=== PATIENT | male | born 1960 | race African-American/Black ===

== ENCOUNTER 2017-05-26 08:48 | Inpatient (IN) ==
[2017-05-26] MEDS ORDERED: ALBUTEROL/IPRATROPIUM 3 ML NEB RESP TX STA (09:15)
[2017-05-26] MEDS ORDERED: FUROSEMIDE 100 MG/10 ML VIAL IV STA (09:15)
[2017-05-26] MEDS ORDERED: FUROSEMIDE 100 MG/10 ML VIAL ONE (09:30)
[2017-05-26] MEDS ORDERED: niCARdipine 25 MG/10 ML VIAL IV ONE ×2 (09:30→12:48)
[2017-05-26] MEDS ORDERED: niCARdipine INJ 25 MG in SODIUM CHLORIDE 0.9% 240 ML IV SCH ×2 (09:30→13:00)
[2017-05-26 09:33] LABS: Basophils % 0.5 % (0.0-0.8); Eosinophils # 0.4 10*3/uL (0.0-0.87); Eosinophils % 6.3 % (0.00-10.9); Hematocrit 49.6 VOL% (42.0-52.0); Hemoglobin 15.4 GM/DL (14.0-18.0); Immature Granulocytes % 0.2 %; Immature Granulocytes Absolute 0.01 #; Lymphocytes # 1.8 10*3/uL (1.4-4.0); Mean Corpuscular Hemoglobin 27 PG (27-34); Mean Corpuscular Volume 85.2 FL (87-102); Mean Platelet Volume 11.5 FL (9.6-12.0); Monocytes # 0.7 10*3/uL (0.11-0.8); Monocytes % 9.8 % (1.7-12.7); Neutrophils # 3.7 10*3/uL (1.4-7.4); Neutrophils % 56.2 % (38.7-73.9); Platelet Count 204 T/CUMM (130-400); Red Blood Count 5.82 MC/CUMM (3.8-5.5); Red Cell Distribution Width 17.8 % (9.3-17.3); White Blood Count 6.6 T/CUMM (4-12)
[2017-05-26 10:04] LABS: Albumin 3.6 G/DL (3.4-5.0); Bilirubin,Total 0.4 MG/DL (0.2-1.0); Calcium 8.5 MG/DL (8.5-10.1); Magnesium 1.9 MG/DL (1.8-2.4); Osmolality,Calculated 281.4 MOS/KG (273-304); Potassium 4.1 MMOL/L (3.5-5.1); Total Protein 8.1 G/DL (6.4-8.3)
[2017-05-26 10:05] LABS: Troponin I Only 0.157 NG/ML (0.00-0.045)
[2017-05-26] MEDS ORDERED: NICOTINE 21 MG/24 HR PATCH TRANSDERM PRN (10:52)
[2017-05-26] MEDS ORDERED: diphenhydrAMINE CAP 25 MG CAPSULE PO PRN (10:52)
[2017-05-26] MEDS ORDERED: DOCUSATE SODIUM 100 MG CAPSULE PO PRN (10:52)
[2017-05-26] MEDS ORDERED: MORPHINE 2 MG/1 ML SYRINGE IV PRN (10:52)
[2017-05-26] MEDS ORDERED: ONDANSETRON 4 MG/2 ML VIAL IV PRN (10:52)
[2017-05-26] MEDS ORDERED: ACETAMINOPHEN 325 MG TABLET PO PRN (10:52)
[2017-05-26] MEDS ORDERED: ENALAPRIL 2.5 MG/2 ML VIAL IV ONE (10:59)
[2017-05-26 12:13] LABS: Risk Ratio 5.38; Thyroid Stimulating Hormone 2.49 uIU/ml (0.358-3.74); VLDL CHOLESTEROL 31.8 MG/DL
[2017-05-26] MEDS ORDERED: SODIUM CHLORIDE 0.9% 250 ML IV ONE (12:44)
[2017-05-26] MEDS ORDERED: DILTIAZEM 100 MG VIAL.ADD IV ONE (12:44)
[2017-05-26] MEDS ORDERED: INFLUENZA VIRUS VACCINE 0.5 ML SYRINGE IM ONE (14:30)
[2017-05-26] MEDS: FUROSEMIDE 40 MG/4 ML VIAL IV SCH ×2 (14:35→22:07)
[2017-05-26] MEDS: PANTOPRAZOLE 40 MG TABLET PO SCH (14:36)
[2017-05-26] MEDS: LISINOPRIL/HCTZ 20-25 MG TABLET PO SCH (14:36)
[2017-05-26] MEDS: ENOXAPARIN 40 MG/0.4 ML SYRINGE SUBCUT SCH ×2 (14:36→15:47)
[2017-05-26] MEDS: guaiFENesin/DM ER 600-30 MG TABLET PO PRN (14:36)
[2017-05-26] MEDS: ALBUTEROL/IPRATROPIUM 3 ML NEB RESP TX SCH ×2 (14:44→20:12)
[2017-05-26] MEDS: ENALAPRIL 2.5 MG/2 ML VIAL IV PRN (22:09)
[2017-05-27] MEDS: ALBUTEROL/IPRATROPIUM 3 ML NEB RESP TX SCH ×4 (01:29→20:17)
[2017-05-27 02:43] LABS: Apearance,Urine CLEAR (Clear); Bilirubin,Urine Negative (Negative); Blood, Urine Moderate mg/dL (Negative); Glucose,Urine (UA) Negative (Negative); Hyaline Casts,Urine 2 /LPF (0-3); Ketones,Urine Negative (Negative); Nitrite,Urine Negative (Negative); Protein,Urine Negative; RBC,Urine 1 /HPF (0-4); Urine Color Straw (Yellow); Urine Specific Gravity 1.006 (1.001-1.035); Urine Urobilinogen < 2.0 EU/DL (0.2-1.0); WBC,Urine <1 /HPF (0-6)
[2017-05-27] MEDS: FUROSEMIDE 40 MG/4 ML VIAL IV SCH ×3 (03:17→17:00)
[2017-05-27] MEDS: NITROGLYCERIN 2% OINT 1 INCH/GM PACK TOP SCH ×3 (03:55→21:12)
[2017-05-27 05:37] LABS: Basophils % 0.4 % (0.0-0.8); Eosinophils % 0.4 % (0.00-10.9); Hematocrit 44.7 VOL% (42.0-52.0); Hemoglobin 14.5 GM/DL (14.0-18.0); Immature Granulocytes % 0.4 %; Immature Granulocytes Absolute 0.02 #; Lymphocytes # 1.5 10*3/uL (1.4-4.0); Lymphocytes % 26.7 % (21.2-54.2); Mean Corpuscular HGB Conc 32.4 GM/DL (32-36); Mean Corpuscular Hemoglobin 27 PG (27-34); Mean Corpuscular Volume 81.9 FL (87-102); Mean Platelet Volume 11.8 FL (9.6-12.0); Monocytes # 0.8 10*3/uL (0.11-0.8); Monocytes % 14.8 % (1.7-12.7); Neutrophils # 3.2 10*3/uL (1.4-7.4); Neutrophils % 57.3 % (38.7-73.9); Platelet Count 188 T/CUMM (130-400); Red Blood Count 5.46 MC/CUMM (3.8-5.5); Red Cell Distribution Width 16.8 % (9.3-17.3); White Blood Count 5.5 T/CUMM (4-12)
[2017-05-27 06:02] LABS: Calcium 8.4 MG/DL (8.5-10.1); Magnesium 1.6 MG/DL (1.8-2.4); Osmolality,Calculated 277.8 MOS/KG (273-304)
[2017-05-27] MEDS ORDERED: hydrALAZINE 20 MG/1 ML VIAL IV PRN (06:22)
[2017-05-27] MEDS: ENALAPRIL 2.5 MG/2 ML VIAL IV PRN (06:34)
[2017-05-27] MEDS ORDERED: POTASSIUM CHLORIDE 20 MEQ TABLET PO ONE (08:14)
[2017-05-27] MEDS: LISINOPRIL/HCTZ 20-25 MG TABLET PO SCH (08:14)
[2017-05-27] MEDS: METOPROLOL SUCCINATE XL 100 MG TABLET PO SCH (08:14)
[2017-05-27] MEDS: guaiFENesin/DM ER 600-30 MG TABLET PO PRN (08:15)
[2017-05-27] MEDS: PANTOPRAZOLE 40 MG TABLET PO SCH (08:15)
[2017-05-27] MEDS ORDERED: MAGNESIUM SULF RIDER 2 GM in PREMIX 1 EACH IV ONE (08:18)
[2017-05-27] MEDS: ENOXAPARIN 40 MG/0.4 ML SYRINGE SUBCUT SCH (11:06)
[2017-05-27] MEDS: ASPIRIN EC 81 MG TABLET PO SCH (11:50)
[2017-05-27] MEDS: amLODIPine 5 MG TABLET PO SCH (11:50)
[2017-05-28] MEDS: ALBUTEROL/IPRATROPIUM 3 ML NEB RESP TX SCH (00:50)
[2017-05-28 02:44] LABS: Calcium 8.8 MG/DL (8.5-10.1); Osmolality,Calculated 280.1 MOS/KG (273-304); Potassium 3.5 MMOL/L (3.5-5.1)
[2017-05-28 07:15] VITALS: BP 143/99
[2017-05-28] MEDS: LISINOPRIL/HCTZ 20-25 MG TABLET PO SCH ×2 (07:53→08:24)
[2017-05-28] MEDS: PANTOPRAZOLE 40 MG TABLET PO SCH ×2 (07:54→08:24)
[2017-05-28] MEDS: ASPIRIN EC 81 MG TABLET PO SCH ×2 (07:54→08:15)
[2017-05-28] MEDS: FUROSEMIDE 40 MG/4 ML VIAL IV SCH (07:54)
[2017-05-28] MEDS: METOPROLOL SUCCINATE XL 100 MG TABLET PO SCH ×2 (07:54→08:25)
[2017-05-28] MEDS: amLODIPine 5 MG TABLET PO SCH ×2 (07:54→08:24)
[2017-05-28] MEDS: NITROGLYCERIN 2% OINT 1 INCH/GM PACK TOP SCH ×2 (07:55→08:15)
== END 2017-05-28 11:16 | disposition home or self-care (01) | DRG 291 ==
LOC: N.ED 08:48 → N.EDINP 11:03 → N.ICU 13:59 → N.TELEN 05-28 08:13
PROVIDERS: ADMIT Internal Medicine Geriatric Medicine; ATTEND Internal Medicine Geriatric Medicine

== ENCOUNTER 2018-03-26 06:13 | Inpatient (IN) ==
[2018-03-26] MEDS ORDERED: ASPIRIN 325 MG TABLET PO STA (06:32)
[2018-03-26] MEDS ORDERED: NITROGLYCERIN 2% OINT 1 INCH/GM PACK TOP STA (06:32)
[2018-03-26] MEDS ORDERED: MORPHINE 4 MG/1 ML VIAL IV STA (06:32)
[2018-03-26] MEDS ORDERED: NITROGLYCERIN SL 0.4 MG TABLET SL PRN (06:32)
[2018-03-26] MEDS ORDERED: METOPROLOL TARTRATE 5 MG/5 ML VIAL IV STA (06:45)
[2018-03-26] MEDS ORDERED: METOPROLOL TARTRATE 5 MG/5 ML VIAL IV ONE (06:45)
[2018-03-26] MEDS ORDERED: ONDANSETRON 4 MG/2 ML VIAL ONE (06:45)
[2018-03-26] MEDS ORDERED: ONDANSETRON 4 MG/2 ML VIAL IV STA (06:45)
[2018-03-26 06:53] LABS: Basophils % 0.1 % (0.0-0.8); Eosinophils # 0.2 10*3/uL (0.0-0.87); Eosinophils % 1.2 % (0.00-10.9); Hematocrit 39.1 VOL% (42.0-52.0); Hemoglobin 12.4 GM/DL (14.0-18.0); Immature Granulocytes % 0.7 %; Immature Granulocytes Absolute 0.09 #; Lymphocytes # 1.5 10*3/uL (1.4-4.0); Mean Corpuscular HGB Conc 31.7 GM/DL (32-36); Mean Corpuscular Hemoglobin 27 PG (27-34); Mean Corpuscular Volume 85.6 FL (87-102); Mean Platelet Volume 10.4 FL (9.6-12.0); Monocytes # 1.8 10*3/uL (0.11-0.8); Neutrophils # 10.1 10*3/uL (1.4-7.4); Platelet Count 213 T/CUMM (130-400); Red Blood Count 4.57 MC/CUMM (3.8-5.5); Red Cell Distribution Width 16.5 % (9.3-17.3); White Blood Count 13.7 T/CUMM (4-12)
[2018-03-26 07:02] LABS: INR 1.1; Partial Thromboplastin Time 31.5 SECS (0-40)
[2018-03-26 07:08] LABS: Albumin 3.2 G/DL (3.4-5.0); Bilirubin,Total 0.7 MG/DL (0.2-1.0); Calcium 8.3 MG/DL (8.5-10.1); Osmolality,Calculated 274.8 MOS/KG (273-304); Potassium 3.7 MMOL/L (3.5-5.1); Total Protein 7.5 G/DL (6.4-8.3)
[2018-03-26] MEDS ORDERED: ENOXAPARIN 120 MG/0.8 ML SYRINGE SUBCUT STA (07:19)
[2018-03-26] MEDS ORDERED: MAGNESIUM SULF RIDER 2 GM in PREMIX 1 EACH IV STA (08:35)
[2018-03-26] MEDS ORDERED: PROMETHAZINE 25 MG/1 ML VIAL IM PRN (09:05)
[2018-03-26] MEDS ORDERED: ENOXAPARIN 40 MG/0.4 ML SYRINGE SUBCUT SCH (09:30)
[2018-03-26] MEDS ORDERED: ASPIRIN EC 81 MG TABLET PO SCH (09:30)
[2018-03-26] MEDS ORDERED: INFLUENZA VIRUS VACCINE 0.5 ML SYRINGE IM ONE (10:36)
[2018-03-26] MEDS: PANTOPRAZOLE 40 MG TABLET PO SCH (10:58)
[2018-03-26] MEDS: LISINOPRIL 20 MG TABLET PO SCH (10:58)
[2018-03-26] MEDS: CHLORTHALIDONE 25 MG TABLET PO SCH (10:58)
[2018-03-26] MEDS: APIXABAN 5 MG TABLET PO SCH ×2 (10:58→21:20)
[2018-03-26] MEDS: LEVOFLOXACIN INJ 500 MG in PREMIX 1 EACH IV SCH (10:59)
[2018-03-26] MEDS: NICOTINE 21 MG/24 HR PATCH TRANSDERM SCH ×2 (10:59→11:05)
[2018-03-26] MEDS: METOPROLOL SUCCINATE XL 100 MG TABLET PO SCH (10:59)
[2018-03-26] MEDS: hydrALAZINE 25 MG TABLET PO SCH (21:20)
[2018-03-26] MEDS: ATORVASTATIN 40 MG TABLET PO SCH (21:20)
[2018-03-27 06:32] LABS: Basophils % 0.2 % (0.0-0.8); Eosinophils # 0.1 10*3/uL (0.0-0.87); Eosinophils % 0.5 % (0.00-10.9); Hematocrit 35.9 VOL% (42.0-52.0); Hemoglobin 11.4 GM/DL (14.0-18.0); Immature Granulocytes % 0.9 %; Immature Granulocytes Absolute 0.13 #; Lymphocytes # 1.5 10*3/uL (1.4-4.0); Lymphocytes % 10.1 % (21.2-54.2); Mean Corpuscular HGB Conc 31.8 GM/DL (32-36); Mean Corpuscular Hemoglobin 27 PG (27-34); Mean Corpuscular Volume 85.3 FL (87-102); Mean Platelet Volume 11.3 FL (9.6-12.0); Monocytes # 2.2 10*3/uL (0.11-0.8); Monocytes % 15.1 % (1.7-12.7); Neutrophils # 10.8 10*3/uL (1.4-7.4); Neutrophils % 73.2 % (38.7-73.9); Platelet Count 212 T/CUMM (130-400); Red Blood Count 4.21 MC/CUMM (3.8-5.5); Red Cell Distribution Width 16.6 % (9.3-17.3); White Blood Count 14.7 T/CUMM (4-12)
[2018-03-27 07:06] LABS: Albumin 2.6 G/DL (3.4-5.0); Bilirubin,Total 0.8 MG/DL (0.2-1.0); Calcium 7.8 MG/DL (8.5-10.1); Potassium 3.6 MMOL/L (3.5-5.1); Risk Ratio 5.36; VLDL CHOLESTEROL 24.4 MG/DL
[2018-03-27] MEDS: PANTOPRAZOLE 40 MG TABLET PO SCH (08:04)
[2018-03-27] MEDS: LISINOPRIL 20 MG TABLET PO SCH (08:04)
[2018-03-27] MEDS: hydrALAZINE 25 MG TABLET PO SCH ×3 (08:04→21:25)
[2018-03-27] MEDS: METOPROLOL SUCCINATE XL 100 MG TABLET PO SCH (08:05)
[2018-03-27] MEDS: APIXABAN 5 MG TABLET PO SCH ×2 (08:05→21:24)
[2018-03-27] MEDS: CHLORTHALIDONE 25 MG TABLET PO SCH (08:05)
[2018-03-27] MEDS: amLODIPine 10 MG TABLET PO SCH (08:05)
[2018-03-27] MEDS: NICOTINE 21 MG/24 HR PATCH TRANSDERM SCH (08:12)
[2018-03-27] MEDS: LEVOFLOXACIN INJ 500 MG in PREMIX 1 EACH IV SCH (08:46)
[2018-03-27] MEDS ORDERED: ACETAMINOPHEN 325 MG TABLET PO PRN (12:02)
[2018-03-27] MEDS ORDERED: ACETAMINOPHEN 500 MG TABLET PO ONE (12:02)
[2018-03-27] MEDS ORDERED: IBUPROFEN 600 MG TABLET PO PRN (13:51)
[2018-03-27] MEDS: ALBUTEROL/IPRATROPIUM 3 ML NEB RESP TX SCH (20:00)
[2018-03-27] MEDS: ATORVASTATIN 40 MG TABLET PO SCH (21:25)
[2018-03-28] MEDS: ALBUTEROL/IPRATROPIUM 3 ML NEB RESP TX SCH ×4 (00:30→19:54)
[2018-03-28 05:22] LABS: Basophils % 0.2 % (0.0-0.8); Eosinophils # 0.2 10*3/uL (0.0-0.87); Eosinophils % 1.9 % (0.00-10.9); Hematocrit 35.8 VOL% (42.0-52.0); Hemoglobin 11.3 GM/DL (14.0-18.0); Immature Granulocytes % 0.7 %; Immature Granulocytes Absolute 0.09 #; Lymphocytes # 1.1 10*3/uL (1.4-4.0); Lymphocytes % 9.3 % (21.2-54.2); Mean Corpuscular HGB Conc 31.6 GM/DL (32-36); Mean Corpuscular Hemoglobin 27 PG (27-34); Mean Corpuscular Volume 85.2 FL (87-102); Mean Platelet Volume 11.2 FL (9.6-12.0); Monocytes % 16.5 % (1.7-12.7); Neutrophils # 8.7 10*3/uL (1.4-7.4); Neutrophils % 71.4 % (38.7-73.9); Platelet Count 213 T/CUMM (130-400); Red Cell Distribution Width 16.7 % (9.3-17.3); White Blood Count 12.2 T/CUMM (4-12)
[2018-03-28 05:35] LABS: Calcium 7.4 MG/DL (8.5-10.1); Potassium 3.6 MMOL/L (3.5-5.1)
[2018-03-28 06:02] LABS: Eosinophils 1 % (0-10); Lymphocytes 7 % (20-55); Segmented Neutrophils 85 % (50-85); Total Cells Counted 100
[2018-03-28 06:03] LABS: Hypochromasia 1+; Platelet Estimate Adequate
[2018-03-28] MEDS: LEVOFLOXACIN INJ 500 MG in PREMIX 1 EACH IV SCH (08:07)
[2018-03-28] MEDS: NICOTINE 21 MG/24 HR PATCH TRANSDERM SCH (08:08)
[2018-03-28] MEDS: APIXABAN 5 MG TABLET PO SCH ×2 (08:09→21:25)
[2018-03-28] MEDS: hydrALAZINE 25 MG TABLET PO SCH ×3 (08:10→21:25)
[2018-03-28] MEDS: LISINOPRIL 20 MG TABLET PO SCH (08:10)
[2018-03-28] MEDS: CHLORTHALIDONE 25 MG TABLET PO SCH (08:11)
[2018-03-28] MEDS: PANTOPRAZOLE 40 MG TABLET PO SCH (08:11)
[2018-03-28] MEDS: METOPROLOL SUCCINATE XL 100 MG TABLET PO SCH (08:11)
[2018-03-28] MEDS: amLODIPine 10 MG TABLET PO SCH (08:11)
[2018-03-28] MEDS: AZITHROMYCIN 250 MG TABLET PO SCH (09:28)
[2018-03-28] MEDS: ATORVASTATIN 40 MG TABLET PO SCH (21:25)
[2018-03-29] MEDS: ALBUTEROL/IPRATROPIUM 3 ML NEB RESP TX SCH ×2 (01:20→07:35)
[2018-03-29 05:23] LABS: Basophils % 0.3 % (0.0-0.8); Eosinophils # 0.4 10*3/uL (0.0-0.87); Eosinophils % 3.5 % (0.00-10.9); Hematocrit 37.1 VOL% (42.0-52.0); Hemoglobin 11.6 GM/DL (14.0-18.0); Immature Granulocytes % 0.8 %; Immature Granulocytes Absolute 0.09 #; Lymphocytes % 8.6 % (21.2-54.2); Mean Corpuscular HGB Conc 31.3 GM/DL (32-36); Mean Corpuscular Hemoglobin 27 PG (27-34); Mean Corpuscular Volume 85.3 FL (87-102); Mean Platelet Volume 11.4 FL (9.6-12.0); Monocytes # 1.9 10*3/uL (0.11-0.8); Monocytes % 16.2 % (1.7-12.7); Neutrophils # 8.2 10*3/uL (1.4-7.4); Neutrophils % 70.6 % (38.7-73.9); Platelet Count 263 T/CUMM (130-400); Red Blood Count 4.35 MC/CUMM (3.8-5.5); Red Cell Distribution Width 16.6 % (9.3-17.3); White Blood Count 11.7 T/CUMM (4-12)
[2018-03-29 05:52] LABS: Eosinophils 1 % (0-10); Hypochromasia 1+; Lymphocytes 7 % (20-55); Microcytosis 1+; Segmented Neutrophils 75 % (50-85); Total Cells Counted 100
[2018-03-29 05:53] LABS: Platelet Estimate Normal
[2018-03-29 06:05] LABS: Calcium 7.7 MG/DL (8.5-10.1); Potassium 3.5 MMOL/L (3.5-5.1)
[2018-03-29 08:02] VITALS: BP 136/85
[2018-03-29] MEDS ORDERED: cefTRIAXone 1,000 MG in SYRINGE 1 EACH IV SCH (09:00)
[2018-03-29] MEDS: AZITHROMYCIN 250 MG TABLET PO SCH (10:09)
[2018-03-29] MEDS: LISINOPRIL 20 MG TABLET PO SCH (10:09)
[2018-03-29] MEDS: NICOTINE 21 MG/24 HR PATCH TRANSDERM SCH (10:09)
[2018-03-29] MEDS: hydrALAZINE 25 MG TABLET PO SCH (10:09)
[2018-03-29] MEDS: APIXABAN 5 MG TABLET PO SCH (10:09)
[2018-03-29] MEDS: PANTOPRAZOLE 40 MG TABLET PO SCH (10:10)
[2018-03-29] MEDS: METOPROLOL SUCCINATE XL 100 MG TABLET PO SCH (10:10)
[2018-03-29] MEDS: CHLORTHALIDONE 25 MG TABLET PO SCH (10:10)
[2018-03-29] MEDS: amLODIPine 10 MG TABLET PO SCH (10:10)
== END 2018-03-29 11:53 | disposition home or self-care (01) | DRG 175 ==
LOC: N.EDINP 06:13 → N.ED 06:13 → SUATTDRO 09:05 → N.EDINP 10:09 → N.2E 10:26
PROVIDERS: ADMIT Internal Medicine; ATTEND Internal Medicine

== ENCOUNTER 2018-09-30 12:45 | Inpatient (IN) ==
[2018-09-30 13:31] LABS: Basophils % 0.4 % (0.0-0.8); Eosinophils # 0.1 10*3/uL (0.0-0.87); Hematocrit 46.6 VOL% (42.0-52.0); Immature Granulocytes % 0.6 %; Immature Granulocytes Absolute 0.06 #; Lymphocytes # 1.7 10*3/uL (1.4-4.0); Mean Corpuscular HGB Conc 30.9 GM/DL (32-36); Mean Corpuscular Volume 83.7 FL (87-102); Mean Platelet Volume 10.6 FL (9.6-12.0); Monocytes % 19.1 % (1.7-12.7); Neutrophils % 62.9 % (38.7-73.9); Platelet Count 372 T/CUMM (130-400); Red Blood Count 5.57 MC/CUMM (3.8-5.5); Red Cell Distribution Width 20.1 % (9.3-17.3); White Blood Count 10.6 T/CUMM (4-12)
[2018-09-30 13:33] LABS: Hemoglobin 14.4 GM/DL (14.0-18.0)
[2018-09-30 13:35] LABS: INR 1.1; PT Patient Result 12.2 SECS; Partial Thromboplastin Time 29.9 SECS (0-40)
[2018-09-30 13:56] LABS: Lymphocytes 15 % (20-55); Segmented Neutrophils 67 % (50-85); Total Cells Counted 100
[2018-09-30 13:57] LABS: Platelet Estimate Normal
[2018-09-30] MEDS ORDERED: ALBUTEROL/IPRATROPIUM 3 ML NEB RESP TX STA (13:58)
[2018-09-30] MEDS ORDERED: AZITHROMYCIN INJ 500 MG in SODIUM CHLORIDE 0.9% 250 ML IV STA (13:59)
[2018-09-30 14:03] LABS: Albumin 2.7 G/DL (3.4-5.0); Bilirubin,Total 0.8 MG/DL (0.2-1.0); CKMB % 4.6 %; Calcium 8.8 MG/DL (8.5-10.1); Osmolality,Calculated 277.7 MOS/KG (273-304)
[2018-09-30 14:04] LABS: Troponin I 0.45 NG/ML (0.00-0.045)
[2018-09-30] MEDS ORDERED: ONDANSETRON 4 MG/2 ML VIAL IV STA (14:11)
[2018-09-30] MEDS ORDERED: ONDANSETRON 4 MG/2 ML VIAL IV PRN (16:21)
[2018-09-30] MEDS ORDERED: ALBUTEROL/IPRATROPIUM 3 ML NEB RESP TX PRN (17:26)
[2018-09-30] MEDS: SODIUM CHLORIDE 0.9% 1,000 ML IV SCH (17:34)
[2018-09-30] MEDS: ZALEPLON 5 MG CAPSULE PO PRN (21:39)
[2018-09-30] MEDS: DOCUSATE SODIUM 100 MG CAPSULE PO SCH (21:39)
[2018-09-30 23:03] LABS: Hepatitis B Core IgM Quant < 0.05 Index; Hepatitis B Surface Ag Quant < 0.10 Index; Hepatitis B Surface Ag Result Negative (Negative); Hepatitis C Virus Ab Quant 0.16 Index; Hepatitis C Virus Ab Result Negative (Negative)
[2018-10-01] MEDS: SODIUM CHLORIDE 0.9% 1,000 ML IV SCH ×3 (01:54→17:16)
[2018-10-01 05:57] LABS: Basophils % 0.3 % (0.0-0.8); Eosinophils # 0.2 10*3/uL (0.0-0.87); Eosinophils % 2.6 % (0.00-10.9); Hematocrit 42.8 VOL% (42.0-52.0); Immature Granulocytes % 0.6 %; Immature Granulocytes Absolute 0.04 #; Lymphocytes % 14.6 % (21.2-54.2); Mean Corpuscular HGB Conc 30.4 GM/DL (32-36); Mean Corpuscular Volume 84.6 FL (87-102); Mean Platelet Volume 10.2 FL (9.6-12.0); Monocytes % 18.7 % (1.7-12.7); Neutrophils % 63.2 % (38.7-73.9); Platelet Count 277 T/CUMM (130-400); Red Blood Count 5.06 MC/CUMM (3.8-5.5); Red Cell Distribution Width 19.6 % (9.3-17.3)
[2018-10-01 06:30] LABS: Albumin 2.2 G/DL (3.4-5.0); Bilirubin,Total 0.5 MG/DL (0.2-1.0); Calcium 8.4 MG/DL (8.5-10.1); Osmolality,Calculated 276.7 MOS/KG (273-304); Total Protein 6.5 G/DL (6.4-8.3)
[2018-10-01 06:31] LABS: Albumin 2.4 G/DL (3.4-5.0); Bilirubin,Direct 0.16 MG/DL (0.0-0.20); Bilirubin,Indirect 0.4 MG/DL (0.0-1.0); Bilirubin,Total 0.6 MG/DL (0.2-1.0); Total Protein 6.9 G/DL (6.4-8.3)
[2018-10-01 06:35] LABS: Eosinophils 3 % (0-10); Hypochromasia 1+; Lymphocytes 6 % (20-55); Microcytosis Slight; Platelet Estimate Adequate; Segmented Neutrophils 77 % (50-85); Total Cells Counted 100
[2018-10-01 06:44] LABS: CKMB % 4.8 %
[2018-10-01 06:45] LABS: Troponin I 0.403 NG/ML (0.00-0.045)
[2018-10-01] MEDS: METOPROLOL SUCCINATE XL 100 MG TABLET PO SCH (09:47)
[2018-10-01] MEDS: PANTOPRAZOLE 40 MG TABLET PO SCH (09:48)
[2018-10-01] MEDS: ASPIRIN EC 81 MG TABLET PO SCH (09:48)
[2018-10-01] MEDS: DOCUSATE SODIUM 100 MG CAPSULE PO SCH ×2 (09:48→20:43)
[2018-10-01] MEDS: POTASSIUM CHLORIDE 10 MEQ TABLET PO SCH (09:48)
[2018-10-01] MEDS: amLODIPine 10 MG TABLET PO SCH (09:48)
[2018-10-01] MEDS: ZALEPLON 5 MG CAPSULE PO PRN (20:44)
[2018-10-02] MEDS: SODIUM CHLORIDE 0.9% 1,000 ML IV SCH ×4 (01:00→22:17)
[2018-10-02 07:22] LABS: Basophils % 0.3 % (0.0-0.8); Eosinophils # 0.2 10*3/uL (0.0-0.87); Hematocrit 41.5 VOL% (42.0-52.0); Hemoglobin 12.5 GM/DL (14.0-18.0); Immature Granulocytes % 0.5 %; Immature Granulocytes Absolute 0.03 #; Lymphocytes % 16.3 % (21.2-54.2); Mean Corpuscular HGB Conc 30.1 GM/DL (32-36); Mean Platelet Volume 10.1 FL (9.6-12.0); Monocytes % 19.8 % (1.7-12.7); Neutrophils % 60.1 % (38.7-73.9); Platelet Count 251 T/CUMM (130-400); Red Blood Count 4.88 MC/CUMM (3.8-5.5); Red Cell Distribution Width 19.6 % (9.3-17.3); White Blood Count 6.3 T/CUMM (4-12)
[2018-10-02 07:30] LABS: Eosinophils 2 % (0-10); Lymphocytes 10 % (20-55); Segmented Neutrophils 77 % (50-85); Total Cells Counted 100
[2018-10-02 07:31] LABS: Hypochromasia 1+; Platelet Estimate Adequate
[2018-10-02 07:43] LABS: Albumin 2.2 G/DL (3.4-5.0); Bilirubin,Total 0.7 MG/DL (0.2-1.0); CKMB % 5.8 %; Calcium 7.8 MG/DL (8.5-10.1); Osmolality,Calculated 274.7 MOS/KG (273-304); Total Protein 6.3 G/DL (6.4-8.3)
[2018-10-02 07:47] LABS: Troponin I 0.434 NG/ML (0.00-0.045)
[2018-10-02] MEDS: METOPROLOL SUCCINATE XL 100 MG TABLET PO SCH (09:35)
[2018-10-02] MEDS: DOCUSATE SODIUM 100 MG CAPSULE PO SCH ×2 (09:36→21:16)
[2018-10-02] MEDS: PANTOPRAZOLE 40 MG TABLET PO SCH (09:36)
[2018-10-02] MEDS: POTASSIUM CHLORIDE 10 MEQ TABLET PO SCH (09:36)
[2018-10-02] MEDS: ASPIRIN EC 81 MG TABLET PO SCH (09:36)
[2018-10-02] MEDS: amLODIPine 10 MG TABLET PO SCH (09:36)
[2018-10-02] MEDS: ZALEPLON 5 MG CAPSULE PO PRN (21:19)
[2018-10-03 05:25] LABS: Basophils % 0.3 % (0.0-0.8); Eosinophils # 0.2 10*3/uL (0.0-0.87); Eosinophils % 2.2 % (0.00-10.9); Hematocrit 41.8 VOL% (42.0-52.0); Hemoglobin 12.9 GM/DL (14.0-18.0); Immature Granulocytes % 0.6 %; Immature Granulocytes Absolute 0.04 #; Lymphocytes % 14.5 % (21.2-54.2); Mean Corpuscular HGB Conc 30.9 GM/DL (32-36); Mean Corpuscular Volume 83.1 FL (87-102); Mean Platelet Volume 11.3 FL (9.6-12.0); Monocytes % 16.1 % (1.7-12.7); Neutrophils % 66.3 % (38.7-73.9); Platelet Count 197 T/CUMM (130-400); Red Blood Count 5.03 MC/CUMM (3.8-5.5); Red Cell Distribution Width 19.9 % (9.3-17.3); White Blood Count 6.8 T/CUMM (4-12)
[2018-10-03 05:31] LABS: Osmolality,Calculated 273.5 MOS/KG (273-304)
[2018-10-03 05:33] LABS: Albumin 2.2 G/DL (3.4-5.0); Bilirubin,Direct 0.13 MG/DL (0.0-0.20); Bilirubin,Total 1.1 MG/DL (0.2-1.0); Total Protein 6.4 G/DL (6.4-8.3)
[2018-10-03 06:02] LABS: Band Neutrophils 1 % (0-10); Eosinophils 2 % (0-10); Metamyelocytes 1 %; Total Cells Counted 100
[2018-10-03 06:03] LABS: Lymphocytes 14 % (20-55); Platelet Estimate Normal; Segmented Neutrophils 66 % (50-85)
[2018-10-03 06:04] LABS: Anisocytosis 1+; Macrocytosis 1+; Polychromasia 1+
[2018-10-03] MEDS: SODIUM CHLORIDE 0.9% 1,000 ML IV SCH ×3 (06:21→23:15)
[2018-10-03] MEDS: POTASSIUM CHLORIDE 10 MEQ TABLET PO SCH (09:20)
[2018-10-03] MEDS: PANTOPRAZOLE 40 MG TABLET PO SCH (09:20)
[2018-10-03] MEDS: amLODIPine 10 MG TABLET PO SCH (09:20)
[2018-10-03] MEDS: ASPIRIN EC 81 MG TABLET PO SCH (09:20)
[2018-10-03] MEDS: DOCUSATE SODIUM 100 MG CAPSULE PO SCH ×2 (09:20→20:37)
[2018-10-03] MEDS: METOPROLOL SUCCINATE XL 100 MG TABLET PO SCH (09:20)
[2018-10-03] MEDS: methylPREDNISolone SOD SUC 125 MG/2 ML VIAL IV SCH (19:15)
[2018-10-04] MEDS: methylPREDNISolone SOD SUC 125 MG/2 ML VIAL IV SCH ×2 (05:38)
[2018-10-04 07:25] LABS: Eosinophils % 0.2 % (0.00-10.9); Hematocrit 45.5 VOL% (42.0-52.0); Hemoglobin 14.2 GM/DL (14.0-18.0); Immature Granulocytes % 0.6 %; Immature Granulocytes Absolute 0.04 #; Lymphocytes # 0.7 10*3/uL (1.4-4.0); Lymphocytes % 11.1 % (21.2-54.2); Mean Corpuscular HGB Conc 31.2 GM/DL (32-36); Mean Platelet Volume 10.7 FL (9.6-12.0); Monocytes % 0.8 % (1.7-12.7); Neutrophils % 87.3 % (38.7-73.9); Platelet Count 244 T/CUMM (130-400); Red Blood Count 5.48 MC/CUMM (3.8-5.5); Red Cell Distribution Width 19.9 % (9.3-17.3); White Blood Count 6.3 T/CUMM (4-12)
[2018-10-04] MEDS: METOPROLOL SUCCINATE XL 100 MG TABLET PO SCH (08:44)
[2018-10-04] MEDS: amLODIPine 10 MG TABLET PO SCH (08:44)
[2018-10-04] MEDS: ASPIRIN EC 81 MG TABLET PO SCH (08:45)
[2018-10-04] MEDS: DOCUSATE SODIUM 100 MG CAPSULE PO SCH ×2 (08:45→21:47)
[2018-10-04] MEDS: POTASSIUM CHLORIDE 10 MEQ TABLET PO SCH (08:45)
[2018-10-04] MEDS: PANTOPRAZOLE 40 MG TABLET PO SCH (08:45)
[2018-10-04] MEDS: SODIUM CHLORIDE 0.9% 1,000 ML IV SCH (08:50)
[2018-10-04] MEDS: LISINOPRIL 20 MG TABLET PO SCH (10:51)
[2018-10-04] MEDS: METHYLPREDNISOLONE SOD SUC IV SCH ×3 (10:51→21:38)
[2018-10-04] MEDS: SODIUM CHLORIDE 0.9% IV SCH ×3 (10:51→21:38)
[2018-10-04 11:02] LABS: Albumin 2.7 G/DL (3.4-5.0); Bilirubin,Total 0.7 MG/DL (0.2-1.0); CKMB % 5.7 %; Calcium 8.2 MG/DL (8.5-10.1); Osmolality,Calculated 269.1 MOS/KG (273-304); Total Protein 7.9 G/DL (6.4-8.3)
[2018-10-04 11:03] LABS: Troponin I 0.46 NG/ML (0.00-0.045)
[2018-10-05] MEDS: METHYLPREDNISOLONE SOD SUC IV SCH ×4 (03:27→20:43)
[2018-10-05] MEDS: SODIUM CHLORIDE 0.9% IV SCH ×4 (03:27→20:43)
[2018-10-05 05:03] LABS: Albumin 2.7 G/DL (3.4-5.0); Bilirubin,Total 0.6 MG/DL (0.2-1.0); Calcium 8.2 MG/DL (8.5-10.1); Osmolality,Calculated 272.1 MOS/KG (273-304); Total Protein 7.6 G/DL (6.4-8.3)
[2018-10-05] MEDS: LISINOPRIL 20 MG TABLET PO SCH (08:54)
[2018-10-05] MEDS: POTASSIUM CHLORIDE 10 MEQ TABLET PO SCH (08:54)
[2018-10-05] MEDS: PANTOPRAZOLE 40 MG TABLET PO SCH (08:54)
[2018-10-05] MEDS: DOCUSATE SODIUM 100 MG CAPSULE PO SCH ×2 (08:54→20:47)
[2018-10-05] MEDS: ASPIRIN EC 81 MG TABLET PO SCH (08:54)
[2018-10-05] MEDS: METOPROLOL SUCCINATE XL 100 MG TABLET PO SCH (08:54)
[2018-10-05] MEDS: amLODIPine 10 MG TABLET PO SCH (08:55)
[2018-10-06] MEDS: SODIUM CHLORIDE 0.9% IV SCH ×4 (02:45→21:05)
[2018-10-06] MEDS: METHYLPREDNISOLONE SOD SUC IV SCH ×4 (02:45→21:05)
[2018-10-06 05:25] LABS: Basophils % 0.1 % (0.0-0.8); Hematocrit 44.6 VOL% (42.0-52.0); Hemoglobin 13.7 GM/DL (14.0-18.0); Immature Granulocytes % 0.7 %; Lymphocytes # 0.9 10*3/uL (1.4-4.0); Lymphocytes % 5.9 % (21.2-54.2); Mean Corpuscular HGB Conc 30.7 GM/DL (32-36); Mean Corpuscular Volume 82.3 FL (87-102); Mean Platelet Volume 10.6 FL (9.6-12.0); Monocytes % 4.5 % (1.7-12.7); Neutrophils % 88.8 % (38.7-73.9); Platelet Count 270 T/CUMM (130-400); Red Blood Count 5.42 MC/CUMM (3.8-5.5); Red Cell Distribution Width 19.6 % (9.3-17.3); White Blood Count 14.7 T/CUMM (4-12)
[2018-10-06 05:49] LABS: Albumin 2.6 G/DL (3.4-5.0); Bilirubin,Total 0.4 MG/DL (0.2-1.0); Calcium 8.4 MG/DL (8.5-10.1); Osmolality,Calculated 274.1 MOS/KG (273-304); Total Protein 7.1 G/DL (6.4-8.3)
[2018-10-06] MEDS ORDERED: LIDOCAINE 1%/EPI INJ 20 ML VIAL ONE (06:48)
[2018-10-06] MEDS ORDERED: BUPIVACAINE 0.5% 50 ML VIAL ONE (06:48)
[2018-10-06] MEDS ORDERED: TISSUE ADHESIVE 1 EACH APPLICATOR TOP ONE (07:27)
[2018-10-06] MEDS ORDERED: PROPOFOL 200 MG/20 ML VIAL IV ONE (07:45)
[2018-10-06] MEDS ORDERED: MIDAZOLAM 2 MG/2 ML VIAL ONE (07:46)
[2018-10-06] MEDS ORDERED: fentaNYL 100 MCG/2 ML VIAL ONE (07:46)
[2018-10-06] MEDS ORDERED: SODIUM CHLORIDE 0.9% 250 ML IV ONE (07:46)
[2018-10-06] MEDS: POTASSIUM CHLORIDE 10 MEQ TABLET PO SCH (09:18)
[2018-10-06] MEDS: PANTOPRAZOLE 40 MG TABLET PO SCH (09:19)
[2018-10-06] MEDS: LISINOPRIL 20 MG TABLET PO SCH (09:19)
[2018-10-06] MEDS: amLODIPine 10 MG TABLET PO SCH (09:19)
[2018-10-06] MEDS: ASPIRIN EC 81 MG TABLET PO SCH (09:19)
[2018-10-06] MEDS: DOCUSATE SODIUM 100 MG CAPSULE PO SCH ×2 (09:19→21:07)
[2018-10-06] MEDS: METOPROLOL SUCCINATE XL 100 MG TABLET PO SCH (09:19)
[2018-10-07] MEDS: METHYLPREDNISOLONE SOD SUC IV SCH ×2 (02:44→08:52)
[2018-10-07] MEDS: SODIUM CHLORIDE 0.9% IV SCH ×2 (02:44→08:52)
[2018-10-07 07:56] VITALS: BP 126/95
[2018-10-07] MEDS: POTASSIUM CHLORIDE 10 MEQ TABLET PO SCH (08:51)
[2018-10-07] MEDS: LISINOPRIL 20 MG TABLET PO SCH (08:51)
[2018-10-07] MEDS: DOCUSATE SODIUM 100 MG CAPSULE PO SCH (08:51)
[2018-10-07] MEDS: PANTOPRAZOLE 40 MG TABLET PO SCH (08:52)
[2018-10-07] MEDS: METOPROLOL SUCCINATE XL 100 MG TABLET PO SCH (08:52)
[2018-10-07] MEDS: amLODIPine 10 MG TABLET PO SCH (08:52)
[2018-10-07] MEDS: ASPIRIN EC 81 MG TABLET PO SCH (08:52)
== END 2018-10-07 10:45 | disposition home or self-care (01) | DRG 501 ==
LOC: N.ED 12:45 → N.EDINP 16:21 → SUATTDRO 16:21 → N.2E 16:50
PROVIDERS: ADMIT Internal Medicine; ATTEND Internal Medicine Nephrology

== ENCOUNTER 2019-04-22 17:54 | Inpatient (IN) ==
[2019-04-22] MEDS ORDERED: PHENAZOPYRIDINE 95 MG TABLET PO STA (18:38)
[2019-04-22] MEDS ORDERED: hydrALAZINE 20 MG/1 ML VIAL IV STA (18:38)
[2019-04-22] MEDS ORDERED: LEVOFLOXACIN INJ 750 MG in PREMIX 1 EACH IV STA (18:38)
[2019-04-22 18:54] LABS: Apearance,Urine CLEAR (Clear); Bilirubin,Urine Negative (Negative); Blood, Urine Moderate mg/dL (Negative); Glucose,Urine (UA) Negative (Negative); Ketones,Urine Negative (Negative); Mucus,Urine Occasional /LPF (Occasional); Nitrite,Urine Negative (Negative); Protein,Urine 100 MG/DL; RBC,Urine 122 /HPF (0-4); Squamous Epithelial Cell,Urine Occasional /HPF (0-10); Urine Color Straw (Yellow); Urine Specific Gravity 1.012 (1.001-1.035); Urine Urobilinogen < 2.0 EU/DL (0.2-1.0); WBC,Urine 3 /HPF (0-6)
[2019-04-22] MEDS ORDERED: TAMSULOSIN 0.4 MG CAPSULE PO ONE (19:04)
[2019-04-22 19:06] LABS: Basophils # 0.1 10*3/uL (0.0-0.2); Basophils % 0.4 % (0.0-0.8); Eosinophils # 0.2 10*3/uL (0.0-0.87); Hematocrit 42.2 VOL% (42.0-52.0); Hemoglobin 13.5 GM/DL (14.0-18.0); Immature Granulocytes % 1.1 %; Immature Granulocytes Absolute 0.13 #; Lymphocytes # 1.6 10*3/uL (1.4-4.0); Lymphocytes % 13.2 % (21.2-54.2); Mean Corpuscular Volume 91.1 FL (87-102); Mean Platelet Volume 10.7 FL (9.6-12.0); Monocytes % 9.1 % (1.7-12.7); Neutrophils % 74.2 % (38.7-73.9); Platelet Count 223 T/CUMM (130-400); Red Blood Count 4.63 MC/CUMM (3.8-5.5); Red Cell Distribution Width 16.1 % (9.3-17.3)
[2019-04-22 19:25] LABS: Albumin 3.4 G/DL (3.4-5.0); Bilirubin,Total 0.4 MG/DL (0.2-1.0); Calcium 8.4 MG/DL (8.5-10.1); Osmolality,Calculated 281.4 MOS/KG (273-304); Total Protein 7.3 G/DL (6.4-8.3)
[2019-04-22] MEDS ORDERED: METOPROLOL TARTRATE 50 MG TABLET PO STA (20:07)
[2019-04-22] MEDS ORDERED: MEPERIDINE 25 MG/1 ML VIAL IV STA (20:55)
[2019-04-22] MEDS ORDERED: ONDANSETRON 4 MG/2 ML VIAL IV STA (20:55)
[2019-04-22] MEDS ORDERED: metroNIDAZOLE INJ 500 MG in PREMIX 1 EACH IV STA (20:55)
[2019-04-22] MEDS ORDERED: DICYCLOMINE 20 MG/2 ML AMP IM ONE (20:55)
[2019-04-22] MEDS ORDERED: METOCLOPRAMIDE 10 MG/2 ML VIAL IV STA (20:55)
[2019-04-23] MEDS ORDERED: MAGNESIUM SULF RIDER 2 GM in PREMIX 1 EACH IV PRN (00:46)
[2019-04-23] MEDS ORDERED: MAGNESIUM SULF RIDER 4 GM in PREMIX 1 EACH IV PRN (00:46)
[2019-04-23] MEDS ORDERED: ONDANSETRON 4 MG/2 ML VIAL IV PRN (00:46)
[2019-04-23] MEDS ORDERED: MORPHINE 4 MG/1 ML VIAL IV PRN (00:46)
[2019-04-23] MEDS ORDERED: ACETAMINOPHEN 325 MG TABLET PO PRN (00:46)
[2019-04-23] MEDS: POTASSIUM CHLORIDE 20 MEQ TABLET PO PRN ×4 (01:24→09:51)
[2019-04-23 02:15] LABS: Basophils % 0.4 % (0.0-0.8); Eosinophils # 0.2 10*3/uL (0.0-0.87); Eosinophils % 2.3 % (0.00-10.9); Hemoglobin 12.5 GM/DL (14.0-18.0); Immature Granulocytes % 0.5 %; Immature Granulocytes Absolute 0.05 #; Lymphocytes # 1.3 10*3/uL (1.4-4.0); Lymphocytes % 13.1 % (21.2-54.2); Mean Corpuscular HGB Conc 31.3 GM/DL (32-36); Mean Corpuscular Volume 92.4 FL (87-102); Mean Platelet Volume 10.5 FL (9.6-12.0); Monocytes % 11.1 % (1.7-12.7); Neutrophils % 72.6 % (38.7-73.9); Platelet Count 217 T/CUMM (130-400); Red Blood Count 4.33 MC/CUMM (3.8-5.5); Red Cell Distribution Width 16.1 % (9.3-17.3); White Blood Count 10.2 T/CUMM (4-12)
[2019-04-23 02:29] LABS: Calcium 8.5 MG/DL (8.5-10.1); Osmolality,Calculated 280.4 MOS/KG (273-304)
[2019-04-23] MEDS: metroNIDAZOLE INJ 500 MG in PREMIX 1 EACH IV SCH ×3 (05:15→21:50)
[2019-04-23] MEDS ORDERED: TAMSULOSIN 0.4 MG CAPSULE PO SCH (09:00)
[2019-04-23] MEDS: FOLIC ACID 1 MG TABLET PO SCH (09:50)
[2019-04-23] MEDS: predniSONE 10 MG TABLET PO SCH (09:50)
[2019-04-23] MEDS: METOPROLOL SUCCINATE XL 100 MG TABLET PO SCH (09:51)
[2019-04-23] MEDS: TAMSULOSIN 0.4 MG CAPSULE PO SCH (09:51)
[2019-04-23] MEDS: amLODIPine 10 MG TABLET PO SCH (09:51)
[2019-04-23] MEDS: CIPROFLOXACIN INJ 400 MG in PREMIX 1 EACH IV SCH ×2 (09:56→20:33)
[2019-04-23] MEDS: OXYBUTYNIN 5 MG TABLET PO SCH ×2 (16:05→20:32)
[2019-04-23] MEDS: NORTRIPTYLINE 25 MG CAPSULE PO SCH (20:32)
[2019-04-24 04:53] LABS: Basophils % 0.4 % (0.0-0.8); Eosinophils # 0.3 10*3/uL (0.0-0.87); Eosinophils % 3.3 % (0.00-10.9); Hematocrit 44.3 VOL% (42.0-52.0); Hemoglobin 13.8 GM/DL (14.0-18.0); Immature Granulocytes % 0.9 %; Immature Granulocytes Absolute 0.08 #; Lymphocytes # 1.6 10*3/uL (1.4-4.0); Lymphocytes % 17.1 % (21.2-54.2); Mean Corpuscular HGB Conc 31.2 GM/DL (32-36); Mean Corpuscular Volume 92.7 FL (87-102); Mean Platelet Volume 11.1 FL (9.6-12.0); Monocytes % 9.7 % (1.7-12.7); Neutrophils % 68.6 % (38.7-73.9); Platelet Count 214 T/CUMM (130-400); Red Blood Count 4.78 MC/CUMM (3.8-5.5); Red Cell Distribution Width 15.9 % (9.3-17.3); White Blood Count 9.1 T/CUMM (4-12)
[2019-04-24 05:29] LABS: Calcium 9.1 MG/DL (8.5-10.1); Osmolality,Calculated 278.4 MOS/KG (273-304)
[2019-04-24] MEDS: metroNIDAZOLE INJ 500 MG in PREMIX 1 EACH IV SCH ×3 (05:34→23:22)
[2019-04-24] MEDS: CIPROFLOXACIN INJ 400 MG in PREMIX 1 EACH IV SCH ×2 (08:37→21:10)
[2019-04-24] MEDS ORDERED: METHOTREXATE 2.5 MG TABLET PO SCH (09:00)
[2019-04-24] MEDS: OXYBUTYNIN 5 MG TABLET PO SCH ×3 (12:21→21:10)
[2019-04-24] MEDS: POTASSIUM CHLORIDE 20 MEQ TABLET PO SCH (12:21)
[2019-04-24] MEDS: FOLIC ACID 1 MG TABLET PO SCH (12:21)
[2019-04-24] MEDS: TAMSULOSIN 0.4 MG CAPSULE PO SCH (12:21)
[2019-04-24] MEDS: predniSONE 10 MG TABLET PO SCH (12:22)
[2019-04-24] MEDS: amLODIPine 10 MG TABLET PO SCH (12:22)
[2019-04-24] MEDS: METOPROLOL SUCCINATE XL 100 MG TABLET PO SCH (12:22)
[2019-04-24] MEDS ORDERED: cefTRIAXone 1,000 MG in SYRINGE 1 EACH IV ONE (13:53)
[2019-04-24] MEDS ORDERED: MIDAZOLAM 2 MG/2 ML VIAL ONE (14:17)
[2019-04-24] MEDS ORDERED: MIDAZOLAM 2 MG/2 ML VIAL IV ONE (14:19)
[2019-04-24] MEDS ORDERED: HYDROmorphone 2 MG/1 ML VIAL ONE (15:17)
[2019-04-24] MEDS ORDERED: ONDANSETRON 4 MG/2 ML VIAL ONE ×2 (15:17→15:18)
[2019-04-24] MEDS ORDERED: LIDOCAINE 2% 5 ML VIAL ONE (15:18)
[2019-04-24] MEDS ORDERED: LACTATED RINGERS 1,000 ML IV ONE (15:18)
[2019-04-24] MEDS: HYDROmorphone 2 MG/1 ML VIAL IV PRN ×2 (15:18→15:30)
[2019-04-24] MEDS ORDERED: DEXAMETHASONE 4 MG/1 ML VIAL ONE (15:18)
[2019-04-24] MEDS ORDERED: PROPOFOL 200 MG/20 ML VIAL IV ONE (15:18)
[2019-04-24] MEDS ORDERED: SEVOFLURANE 1 UNIT/15 MINUTE INH ONE (15:19)
[2019-04-24] MEDS ORDERED: ONDANSETRON 4 MG/2 ML VIAL IV PRN (15:21)
[2019-04-24] MEDS ORDERED: hydrALAZINE 20 MG/1 ML VIAL IV ONE (15:27)
[2019-04-24] MEDS ORDERED: hydrALAZINE 20 MG/1 ML VIAL ONE (15:33)
[2019-04-24] MEDS: NORTRIPTYLINE 25 MG CAPSULE PO SCH (21:10)
[2019-04-25] MEDS: metroNIDAZOLE INJ 500 MG in PREMIX 1 EACH IV SCH ×2 (05:45→15:01)
[2019-04-25] MEDS: CIPROFLOXACIN INJ 400 MG in PREMIX 1 EACH IV SCH (08:32)
[2019-04-25] MEDS: predniSONE 10 MG TABLET PO SCH (08:32)
[2019-04-25] MEDS: METOPROLOL SUCCINATE XL 100 MG TABLET PO SCH (08:32)
[2019-04-25] MEDS: POTASSIUM CHLORIDE 20 MEQ TABLET PO SCH (08:32)
[2019-04-25] MEDS: FOLIC ACID 1 MG TABLET PO SCH (08:33)
[2019-04-25] MEDS: OXYBUTYNIN 5 MG TABLET PO SCH ×2 (08:33→15:01)
[2019-04-25] MEDS: amLODIPine 10 MG TABLET PO SCH (08:33)
[2019-04-25] MEDS: TAMSULOSIN 0.4 MG CAPSULE PO SCH (08:37)
[2019-04-25 16:10] VITALS: BP 160/94
== END 2019-04-25 16:24 | disposition home or self-care (01) | DRG 988 ==
LOC: N.ED 17:54 → N.EDINP 23:28 → N.4E 04-23 00:17
PROVIDERS: ADMIT Hospitalist; ATTEND Hospitalist

== ENCOUNTER 2020-07-06 00:14 | Inpatient (IN) ==
[2020-07-06] MEDS ORDERED: ADENOSINE 6 MG/2 ML VIAL ONE (00:23)
[2020-07-06] MEDS ORDERED: ADENOSINE 6 MG/2 ML VIAL IV STA (00:24)
[2020-07-06] MEDS ORDERED: ROCURONIUM 100 MG/10 ML VIAL IV STA ×2 (00:29→02:25)
[2020-07-06] MEDS ORDERED: ETOMIDATE 20 MG/10 ML VIAL IV STA (00:29)
[2020-07-06] MEDS ORDERED: FUROSEMIDE 100 MG/10 ML VIAL ONE (00:30)
[2020-07-06] MEDS ORDERED: LABETALOL 20 MG/4 ML SYRINGE IV ONE (00:37)
[2020-07-06] MEDS ORDERED: FUROSEMIDE 40 MG/4 ML VIAL IV STA (00:37)
[2020-07-06] MEDS ORDERED: ETOMIDATE 20 MG/10 ML VIAL IV ONE (00:38)
[2020-07-06] MEDS ORDERED: ROCURONIUM 100 MG/10 ML VIAL IV ONE (00:39)
[2020-07-06] MEDS ORDERED: LABETALOL 20 MG/4 ML SYRINGE IV STA (00:40)
[2020-07-06 00:52] LABS: PT Patient Result 10.9 SECS (9.8-11.9); Partial Thromboplastin Time 32.5 SECS (23.9-33.8)
[2020-07-06 01:01] LABS: Basophils # 0.1 10*3/uL (0.0-0.2); Basophils % 0.5 % (0.0-0.8); Eosinophils # 0.5 10*3/uL (0.0-0.87); Eosinophils % 5.1 % (0.00-10.9); Hematocrit 48.9 VOL% (42.0-52.0); Hemoglobin 14.9 GM/DL (14.0-18.0); Immature Granulocytes % 0.3 %; Immature Granulocytes Absolute 0.03 #; Lymphocytes # 4.5 10*3/uL (1.4-4.0); Lymphocytes % 46.7 % (21.2-54.2); Mean Corpuscular HGB Conc 30.5 GM/DL (32-36); Mean Platelet Volume 10.5 FL (9.6-12.0); Monocytes % 5.1 % (1.7-12.7); Neutrophils % 42.3 % (38.7-73.9); Platelet Count 175 T/CUMM (130-400); Red Blood Count 5.62 MC/CUMM (3.8-5.5); Red Cell Distribution Width 19.6 % (9.3-17.3); White Blood Count 9.6 T/CUMM (4-12)
[2020-07-06 01:03] LABS: Barbiturates Screen,Urine Negative (Negative); Benzodiazepines Screen,Urine Negative (Negative); Cannabinoid Screen,Urine Negative (Negative); Opiate Screen,Urine Positive (Negative); Phencyclidine Screen,Urine Negative (Negative)
[2020-07-06 01:04] LABS: Albumin 3.6 G/DL (3.4-5.0); Bilirubin,Total 0.4 MG/DL (0.2-1.0); Calcium 8.5 MG/DL (8.5-10.1); Osmolality,Calculated 285.4 MOS/KG (273-304); Total Protein 8.6 G/DL (6.4-8.3)
[2020-07-06 01:06] LABS: ABG Base Excess -5.2 MMOL/L (-2.5-2.5); ABG HCO3 23.1 MMOL/L (20-26); ABG Oxygen Saturation 98.9 % (95-100); ABG PCO2 55.8 MM HG (35-48); ABG PH 7.234 (7.35-7.45); ABG PO2 187.8 MM HG (80-95); ABG TCO2 24.8 MMOL/L (23-27)
[2020-07-06 01:07] LABS: Troponin I 0.5 NG/ML (0.00-0.045)
[2020-07-06 01:08] LABS: Bacteria,Urine Many /HPF (Few); Bilirubin,Urine Negative (Negative); Blood, Urine Small mg/dL (Negative); Glucose,Urine (UA) 50 mg/dL (Negative); Hyaline Casts,Urine 9 /LPF (0-3); Ketones,Urine Negative (Negative); Nitrite,Urine Negative (Negative); Protein,Urine >=500 MG/DL; RBC,Urine 32 /HPF (0-4); Squamous Epithelial Cell,Urine Occasional /HPF (0-10); Urine Appearance Slightly Hazy (Clear); Urine Color Yellow (Yellow); Urine Specific Gravity 1.015 (1.001-1.035); Urine Urobilinogen < 2.0 EU/DL (0.2-1.0); WBC,Urine 29 /HPF (0-6)
[2020-07-06] MEDS ORDERED: SODIUM CHLORIDE 0.9% 1,000 ML IV STA (01:21)
[2020-07-06] MEDS ORDERED: LEVOFLOXACIN INJ 500 MG in PREMIX 1 EACH IV STA (01:25)
[2020-07-06] MEDS ORDERED: niCARdipine 25 MG/10 ML VIAL IV ONE (01:26)
[2020-07-06] MEDS: niCARdipine INJ 25 MG in SODIUM CHLORIDE 0.9% 240 ML IV PRN ×2 (01:30→08:56)
[2020-07-06] MEDS ORDERED: ROCURONIUM 500 MG in SODIUM CHLORIDE 0.9% 500 ML IV PRN (02:43)
[2020-07-06] MEDS ORDERED: MORPHINE 4 MG/1 ML VIAL IV PRN (03:15)
[2020-07-06] MEDS ORDERED: guaiFENesin/DM ER 600-30 MG TABLET PO PRN (03:15)
[2020-07-06] MEDS ORDERED: ONDANSETRON 4 MG/2 ML VIAL IV PRN (03:15)
[2020-07-06] MEDS ORDERED: ALBUTEROL 2.5 MG/3 ML NEB RESP TX PRN (03:15)
[2020-07-06] MEDS ORDERED: NICOTINE 21 MG/24 HR PATCH TRANSDERM PRN (03:15)
[2020-07-06] MEDS ORDERED: diphenhydrAMINE CAP 25 MG CAPSULE PO PRN (03:15)
[2020-07-06 04:24] LABS: ABG HCO3 24.5 MMOL/L (20-26); ABG Oxygen Saturation 99.3 % (95-100); ABG PCO2 51.3 MM HG (35-48); ABG PH 7.329 (7.35-7.45); ABG TCO2 23.4 MMOL/L (23-27)
[2020-07-06] MEDS: POTASSIUM CHLORIDE RIDER 10 MEQ in PREMIX 1 EACH IV PRN ×3 (04:38→06:36)
[2020-07-06] MEDS ORDERED: PHENYLEPHRINE DRIP 40 MG/250 ML PREMIX IV ONE (05:33)
[2020-07-06] MEDS ORDERED: SODIUM CHLORIDE 0.9% 500 ML IV ONE (05:35)
[2020-07-06] MEDS ORDERED: PHENYLEPHRINE DRIP 40 MG/250 ML PREMIX IV PRN (05:36)
[2020-07-06] MEDS: ALBUTEROL/IPRATROPIUM 3 ML NEB RESP TX SCH ×3 (07:01→18:06)
[2020-07-06] MEDS ORDERED: FUROSEMIDE 40 MG/4 ML VIAL IV SCH (08:00)
[2020-07-06] MEDS ORDERED: GLUCAGON 1 MG VIAL IM PRN (08:11)
[2020-07-06] MEDS ORDERED: DEXTROSE 50% 25 GM/50 ML VIAL IV PRN (08:11)
[2020-07-06] MEDS: methylPREDNISolone SOD SUC 125 MG/2 ML VIAL IV SCH ×2 (08:39→20:05)
[2020-07-06] MEDS: ENOXAPARIN 40 MG/0.4 ML SYRINGE SUBCUT SCH (08:39)
[2020-07-06] MEDS: POTASSIUM CHLORIDE 20 MEQ/15 ML UDCUP PER TUBE SCH ×3 (08:39→17:48)
[2020-07-06] MEDS: FUROSEMIDE 40 MG/4 ML VIAL IV SCH (08:40)
[2020-07-06 09:50] LABS: Calcium 8.4 MG/DL (8.5-10.1); Osmolality,Calculated 286.4 MOS/KG (273-304); Potassium 4.1 MMOL/L (3.5-5.1)
[2020-07-06] MEDS ORDERED: MIDAZOLAM 2 MG/2 ML VIAL IV ONE (09:52)
[2020-07-06] MEDS ORDERED: MIDAZOLAM 2 MG/2 ML VIAL ONE (09:53)
[2020-07-06] MEDS ORDERED: ASPIRIN EC 81 MG TABLET PO SCH (10:00)
[2020-07-06] MEDS ORDERED: lisinopriL 20 MG TABLET PO SCH (10:00)
[2020-07-06] MEDS: MIDAZOLAM 100 MG in SODIUM CHLORIDE 0.9% 80 ML IV PRN (10:59)
[2020-07-06] MEDS: INSULIN LISPRO 100 UNIT/ML SUBCUT SCH ×2 (13:36→20:04)
[2020-07-06] MEDS: ASPIRIN CHEW 81 MG TABLET PO SCH (13:42)
[2020-07-06] MEDS: amLODIPine 10 MG TABLET PO SCH (13:43)
[2020-07-06] MEDS ORDERED: POTASSIUM CHLORIDE 20 MEQ/15 ML UDCUP PER TUBE SCH (18:00)
[2020-07-07] MEDS: INSULIN LISPRO 100 UNIT/ML SUBCUT SCH ×4 (00:29→18:20)
[2020-07-07] MEDS: ALBUTEROL/IPRATROPIUM 3 ML NEB RESP TX SCH ×4 (01:58→19:19)
[2020-07-07 03:26] LABS: Allen Test Positive; Pt O2 Delivery Device Ventilator
[2020-07-07 03:27] LABS: ABG Base Excess -0.9 MMOL/L (-2.5-2.5); ABG HCO3 23.7 MMOL/L (20-26); ABG Oxygen Saturation 99.8 % (95-100); ABG PCO2 37.4 MM HG (35-48); ABG PH 7.405 (7.35-7.45); ABG TCO2 20.4 MMOL/L (23-27)
[2020-07-07] MEDS: hydrALAZINE 20 MG/1 ML VIAL IV PRN (03:30)
[2020-07-07 04:42] LABS: Hematocrit 43.4 VOL% (42.0-52.0); Hemoglobin 13.6 GM/DL (14.0-18.0); Immature Granulocytes % 0.6 %; Immature Granulocytes Absolute 0.04 #; Lymphocytes # 0.8 10*3/uL (1.4-4.0); Lymphocytes % 12.3 % (21.2-54.2); Mean Corpuscular HGB Conc 31.3 GM/DL (32-36); Mean Corpuscular Volume 84.4 FL (87-102); Mean Platelet Volume 10.8 FL (9.6-12.0); Monocytes % 1.8 % (1.7-12.7); Neutrophils % 85.3 % (38.7-73.9); Platelet Count 141 T/CUMM (130-400); Red Blood Count 5.14 MC/CUMM (3.8-5.5); Red Cell Distribution Width 19.9 % (9.3-17.3); White Blood Count 6.3 T/CUMM (4-12)
[2020-07-07 05:07] LABS: Calcium 8.5 MG/DL (8.5-10.1); Osmolality,Calculated 291.5 MOS/KG (273-304); Prealbumin 22.5 MG/DL (20-40)
[2020-07-07 05:09] LABS: Lymphocytes 14 % (20-55); Segmented Neutrophils 85 % (50-85); Total Cells Counted 100
[2020-07-07 05:10] LABS: Platelet Estimate Normal
[2020-07-07 05:28] LABS: Albumin 3.5 G/DL (3.4-5.0); Bilirubin,Total 0.4 MG/DL (0.2-1.0); Calcium 8.3 MG/DL (8.5-10.1); Osmolality,Calculated 293.4 MOS/KG (273-304); Potassium 4.2 MMOL/L (3.5-5.1); Total Protein 7.1 G/DL (6.4-8.3)
[2020-07-07] MEDS ORDERED: ISOSORBIDE MONONITRATE 30 MG TABLET PO SCH (09:00)
[2020-07-07] MEDS ORDERED: hydrALAZINE 25 MG TABLET PO SCH (09:00)
[2020-07-07] MEDS: methylPREDNISolone SOD SUC 125 MG/2 ML VIAL IV SCH ×2 (09:36→09:48)
[2020-07-07] MEDS: LEVOFLOXACIN INJ 500 MG in PREMIX 1 EACH IV SCH ×3 (09:36→09:51)
[2020-07-07] MEDS: FUROSEMIDE 40 MG/4 ML VIAL IV SCH (09:36)
[2020-07-07] MEDS: ENOXAPARIN 40 MG/0.4 ML SYRINGE SUBCUT SCH (09:37)
[2020-07-07] MEDS: ASPIRIN CHEW 81 MG TABLET PO SCH (09:37)
[2020-07-07] MEDS: amLODIPine 10 MG TABLET PO SCH (09:37)
[2020-07-07] MEDS: methylPREDNISolone SOD SUC 40 MG/1 ML VIAL IV SCH ×2 (09:51→21:48)
[2020-07-07] MEDS: ISOSORBIDE MONONITRATE 20 MG TABLET PO SCH (15:01)
[2020-07-07] MEDS: MIDAZOLAM 100 MG in SODIUM CHLORIDE 0.9% 80 ML IV PRN (16:25)
[2020-07-08] MEDS: INSULIN LISPRO 100 UNIT/ML SUBCUT SCH ×5 (00:06→23:29)
[2020-07-08] MEDS: ALBUTEROL/IPRATROPIUM 3 ML NEB RESP TX SCH ×4 (01:44→19:31)
[2020-07-08 04:01] LABS: Basophils % 0.1 % (0.0-0.8); Hematocrit 39.2 VOL% (42.0-52.0); Hemoglobin 12.3 GM/DL (14.0-18.0); Immature Granulocytes % 1.9 %; Immature Granulocytes Absolute 0.26 #; Lymphocytes # 0.9 10*3/uL (1.4-4.0); Lymphocytes % 6.4 % (21.2-54.2); Mean Corpuscular HGB Conc 31.4 GM/DL (32-36); Mean Corpuscular Volume 83.6 FL (87-102); Mean Platelet Volume 11.3 FL (9.6-12.0); Monocytes % 5.2 % (1.7-12.7); Neutrophils % 86.4 % (38.7-73.9); Platelet Count 167 T/CUMM (130-400); Red Blood Count 4.69 MC/CUMM (3.8-5.5); Red Cell Distribution Width 20.5 % (9.3-17.3); White Blood Count 13.9 T/CUMM (4-12)
[2020-07-08 04:16] LABS: ABG Base Excess 0.2 MMOL/L (-2.5-2.5); ABG HCO3 24.4 MMOL/L (20-26); ABG Oxygen Saturation 88.8 % (95-100); ABG PCO2 44.4 MM HG (35-48); ABG PH 7.372 (7.35-7.45); ABG PO2 59.4 MM HG (80-95); ABG TCO2 22.7 MMOL/L (23-27); Allen Test Positive; Pt O2 Delivery Device Ventilator
[2020-07-08 04:18] LABS: Calcium 8.3 MG/DL (8.5-10.1); Osmolality,Calculated 291.7 MOS/KG (273-304); Potassium 4.4 MMOL/L (3.5-5.1)
[2020-07-08] MEDS: amLODIPine 10 MG TABLET PO SCH (08:07)
[2020-07-08] MEDS: ISOSORBIDE MONONITRATE 20 MG TABLET PO SCH ×2 (08:07→14:51)
[2020-07-08] MEDS: ENOXAPARIN 40 MG/0.4 ML SYRINGE SUBCUT SCH (08:07)
[2020-07-08] MEDS: ASPIRIN CHEW 81 MG TABLET PO SCH (08:07)
[2020-07-08] MEDS: methylPREDNISolone SOD SUC 40 MG/1 ML VIAL IV SCH ×2 (09:06→20:47)
[2020-07-08] MEDS: carvediloL 3.125 MG TABLET PO SCH ×2 (09:09→22:10)
[2020-07-08] MEDS: hydrALAZINE 20 MG/1 ML VIAL IV PRN (13:13)
[2020-07-08] MEDS: MIDAZOLAM 100 MG in SODIUM CHLORIDE 0.9% 80 ML IV PRN (14:14)
[2020-07-08] MEDS: HEPARIN 5,000 UNIT/1 ML VIAL SUBCUT SCH (14:18)
[2020-07-08] MEDS: PANTOPRAZOLE 40 MG VIAL IV SCH (15:50)
[2020-07-09] MEDS: ALBUTEROL/IPRATROPIUM 3 ML NEB RESP TX SCH ×4 (01:07→19:49)
[2020-07-09] MEDS: HEPARIN 5,000 UNIT/1 ML VIAL SUBCUT SCH ×2 (02:48→14:54)
[2020-07-09 04:41] LABS: Basophils % 0.1 % (0.0-0.8); Hematocrit 40.5 VOL% (42.0-52.0); Hemoglobin 12.3 GM/DL (14.0-18.0); Immature Granulocytes % 1.2 %; Immature Granulocytes Absolute 0.16 #; Lymphocytes % 7.9 % (21.2-54.2); Mean Corpuscular HGB Conc 30.4 GM/DL (32-36); Mean Corpuscular Volume 85.8 FL (87-102); Mean Platelet Volume 10.5 FL (9.6-12.0); Monocytes % 7.4 % (1.7-12.7); Neutrophils % 83.4 % (38.7-73.9); Platelet Count 203 T/CUMM (130-400); Red Blood Count 4.72 MC/CUMM (3.8-5.5); White Blood Count 13.1 T/CUMM (4-12)
[2020-07-09 04:50] LABS: Allen Test Positive; Pt O2 Delivery Device Ventilator
[2020-07-09 04:51] LABS: ABG Base Excess 0.1 MMOL/L (-2.5-2.5); ABG HCO3 24.7 MMOL/L (20-26); ABG PH 7.409 (7.35-7.45); ABG PO2 191.3 MM HG (80-95)
[2020-07-09 05:12] LABS: Albumin 3.1 G/DL (3.4-5.0); Bilirubin,Total 0.8 MG/DL (0.2-1.0); Osmolality,Calculated 296.5 MOS/KG (273-304); Potassium 4.4 MMOL/L (3.5-5.1); Total Protein 7.1 G/DL (6.4-8.3)
[2020-07-09] MEDS: INSULIN LISPRO 100 UNIT/ML SUBCUT SCH ×3 (06:06→18:03)
[2020-07-09] MEDS: amLODIPine 10 MG TABLET PO SCH (08:48)
[2020-07-09] MEDS: carvediloL 3.125 MG TABLET PO SCH ×2 (08:48→20:38)
[2020-07-09] MEDS: ISOSORBIDE MONONITRATE 20 MG TABLET PO SCH ×2 (08:48→14:54)
[2020-07-09] MEDS: ASPIRIN CHEW 81 MG TABLET PO SCH (08:48)
[2020-07-09] MEDS: PANTOPRAZOLE 40 MG VIAL IV SCH (08:48)
[2020-07-09] MEDS: methylPREDNISolone SOD SUC 40 MG/1 ML VIAL IV SCH ×2 (08:53→20:51)
[2020-07-09] MEDS: LEVOFLOXACIN INJ 500 MG in PREMIX 1 EACH IV SCH (09:10)
[2020-07-09 12:31] LABS: Myeloperoxidase Antibody < 0.2 U
[2020-07-09 12:47] LABS: ABG Base Excess 1.3 MMOL/L (-2.5-2.5); ABG HCO3 25.6 MMOL/L (20-26); ABG Oxygen Saturation 99.7 % (95-100); ABG PCO2 41.6 MM HG (35-48); ABG PH 7.405 (7.35-7.45); ABG TCO2 22.9 MMOL/L (23-27)
[2020-07-09] MEDS: hydrALAZINE 20 MG/1 ML VIAL IV PRN (23:28)
[2020-07-10] MEDS: INSULIN LISPRO 100 UNIT/ML SUBCUT SCH ×4 (00:20→18:34)
[2020-07-10] MEDS: ALBUTEROL/IPRATROPIUM 3 ML NEB RESP TX SCH ×4 (00:21→19:00)
[2020-07-10] MEDS ORDERED: hydrALAZINE 20 MG/1 ML VIAL IV ONE (01:01)
[2020-07-10] MEDS: HEPARIN 5,000 UNIT/1 ML VIAL SUBCUT SCH ×2 (03:29→15:28)
[2020-07-10] MEDS: hydrALAZINE 20 MG/1 ML VIAL IV PRN (04:35)
[2020-07-10 04:38] LABS: ABG Base Excess 2.6 MMOL/L (-2.5-2.5); ABG HCO3 26.7 MMOL/L (20-26); ABG Oxygen Saturation 98.6 % (95-100); ABG PCO2 39.6 MM HG (35-48); ABG PH 7.439 (7.35-7.45); Allen Test Positive
[2020-07-10 05:03] LABS: Basophils % 0.2 % (0.0-0.8); Hematocrit 43.4 VOL% (42.0-52.0); Hemoglobin 13.9 GM/DL (14.0-18.0); Immature Granulocytes % 0.8 %; Mean Corpuscular Volume 83.9 FL (87-102); Mean Platelet Volume 10.5 FL (9.6-12.0); Monocytes % 8.1 % (1.7-12.7); Neutrophils % 82.9 % (38.7-73.9); Platelet Count 248 T/CUMM (130-400); Red Blood Count 5.17 MC/CUMM (3.8-5.5)
[2020-07-10 05:26] LABS: Albumin 3.2 G/DL (3.4-5.0); Bilirubin,Total 0.4 MG/DL (0.2-1.0); Calcium 8.6 MG/DL (8.5-10.1); Osmolality,Calculated 292.4 MOS/KG (273-304); Potassium 4.5 MMOL/L (3.5-5.1); Total Protein 7.7 G/DL (6.4-8.3)
[2020-07-10] MEDS: carvediloL 3.125 MG TABLET PO SCH (06:22)
[2020-07-10] MEDS: ISOSORBIDE MONONITRATE 20 MG TABLET PO SCH ×3 (06:23→15:28)
[2020-07-10] MEDS: amLODIPine 10 MG TABLET PO SCH ×2 (06:24→08:22)
[2020-07-10] MEDS ORDERED: cloNIDine 0.1 MG TABLET PO PRN (07:59)
[2020-07-10] MEDS: cloNIDine 0.1 MG TABLET PO SCH ×2 (09:29→22:04)
[2020-07-10] MEDS: ASPIRIN CHEW 81 MG TABLET PO SCH (09:29)
[2020-07-10] MEDS: FUROSEMIDE 40 MG/4 ML VIAL IV SCH (09:30)
[2020-07-10] MEDS: carvediloL 6.25 MG TABLET PO SCH ×2 (09:30→22:04)
[2020-07-10] MEDS: PANTOPRAZOLE 40 MG VIAL IV SCH (09:31)
[2020-07-10] MEDS: methylPREDNISolone SOD SUC 40 MG/1 ML VIAL IV SCH ×2 (09:31→22:04)
[2020-07-11] MEDS: ALBUTEROL/IPRATROPIUM 3 ML NEB RESP TX SCH ×4 (00:26→19:44)
[2020-07-11] MEDS: INSULIN LISPRO 100 UNIT/ML SUBCUT SCH ×4 (02:23→18:24)
[2020-07-11] MEDS: HEPARIN 5,000 UNIT/1 ML VIAL SUBCUT SCH ×2 (03:08→14:52)
[2020-07-11 06:31] LABS: Basophils % 0.1 % (0.0-0.8); Eosinophils % 0.2 % (0.00-10.9); Hematocrit 43.4 VOL% (42.0-52.0); Hemoglobin 13.5 GM/DL (14.0-18.0); Immature Granulocytes % 0.9 %; Immature Granulocytes Absolute 0.08 #; Lymphocytes # 1.3 10*3/uL (1.4-4.0); Lymphocytes % 14.5 % (21.2-54.2); Mean Corpuscular HGB Conc 31.1 GM/DL (32-36); Mean Corpuscular Volume 83.6 FL (87-102); Mean Platelet Volume 10.3 FL (9.6-12.0); Monocytes % 14.8 % (1.7-12.7); Neutrophils % 69.5 % (38.7-73.9); Platelet Count 288 T/CUMM (130-400); Red Blood Count 5.19 MC/CUMM (3.8-5.5); Red Cell Distribution Width 21.1 % (9.3-17.3); White Blood Count 8.6 T/CUMM (4-12)
[2020-07-11] MEDS ORDERED: FUROSEMIDE 40 MG/4 ML VIAL ONE (10:35)
[2020-07-11] MEDS: cloNIDine 0.1 MG TABLET PO SCH ×2 (10:48→22:05)
[2020-07-11] MEDS: carvediloL 12.5 MG TABLET PO SCH ×2 (10:48→22:05)
[2020-07-11] MEDS: ASPIRIN CHEW 81 MG TABLET PO SCH (10:48)
[2020-07-11] MEDS: LEVOFLOXACIN 500 MG TABLET PO SCH (10:49)
[2020-07-11] MEDS: amLODIPine 10 MG TABLET PO SCH (10:49)
[2020-07-11] MEDS: FOLIC ACID 1 MG TABLET PO SCH (10:49)
[2020-07-11] MEDS: PANTOPRAZOLE 40 MG VIAL IV SCH (10:52)
[2020-07-11] MEDS: FUROSEMIDE 40 MG/4 ML VIAL IV SCH (10:56)
[2020-07-11] MEDS: methylPREDNISolone SOD SUC 40 MG/1 ML VIAL IV SCH (11:00)
[2020-07-11 12:32] LABS: Anti-Nuclear Antibody Pattern NUCLEOLAR
[2020-07-11] MEDS: ISOSORBIDE MONONITRATE 20 MG TABLET PO SCH ×2 (12:41→14:52)
[2020-07-12] MEDS: ALBUTEROL/IPRATROPIUM 3 ML NEB RESP TX SCH ×4 (02:00→19:27)
[2020-07-12] MEDS: INSULIN LISPRO 100 UNIT/ML SUBCUT SCH ×5 (02:23→23:37)
[2020-07-12] MEDS: HEPARIN 5,000 UNIT/1 ML VIAL SUBCUT SCH ×2 (03:59→16:00)
[2020-07-12] MEDS: ASPIRIN CHEW 81 MG TABLET PO SCH (08:30)
[2020-07-12] MEDS: amLODIPine 10 MG TABLET PO SCH (08:30)
[2020-07-12] MEDS: cloNIDine 0.1 MG TABLET PO SCH ×2 (08:30→20:45)
[2020-07-12] MEDS: FUROSEMIDE 40 MG TABLET PO SCH (08:30)
[2020-07-12] MEDS: predniSONE 10 MG TABLET PO SCH (08:30)
[2020-07-12] MEDS: FOLIC ACID 1 MG TABLET PO SCH (08:30)
[2020-07-12] MEDS: ISOSORBIDE MONONITRATE 20 MG TABLET PO SCH ×2 (08:31→16:02)
[2020-07-12] MEDS: PANTOPRAZOLE 40 MG VIAL IV SCH (08:32)
[2020-07-12] MEDS: carvediloL 25 MG TABLET PO SCH ×2 (08:34→20:45)
[2020-07-12 08:55] LABS: Calcium 8.9 MG/DL (8.5-10.1); Osmolality,Calculated 289.8 MOS/KG (273-304); Potassium 4.1 MMOL/L (3.5-5.1)
[2020-07-12 12:51] LABS: Anti SS-A Antibodies < 16 EU/ML
[2020-07-13] MEDS: ALBUTEROL/IPRATROPIUM 3 ML NEB RESP TX SCH ×2 (00:05→07:05)
[2020-07-13] MEDS: HEPARIN 5,000 UNIT/1 ML VIAL SUBCUT SCH (02:27)
[2020-07-13 05:59] LABS: Basophils % 0.2 % (0.0-0.8); Eosinophils # 0.4 10*3/uL (0.0-0.87); Eosinophils % 4.5 % (0.00-10.9); Hematocrit 40.1 VOL% (42.0-52.0); Hemoglobin 12.9 GM/DL (14.0-18.0); Immature Granulocytes % 1.5 %; Immature Granulocytes Absolute 0.13 #; Lymphocytes # 1.7 10*3/uL (1.4-4.0); Lymphocytes % 19.2 % (21.2-54.2); Mean Corpuscular HGB Conc 32.2 GM/DL (32-36); Mean Corpuscular Volume 83.4 FL (87-102); Mean Platelet Volume 10.5 FL (9.6-12.0); Monocytes % 22.2 % (1.7-12.7); Neutrophils % 52.4 % (38.7-73.9); Platelet Count 315 T/CUMM (130-400); Red Blood Count 4.81 MC/CUMM (3.8-5.5); Red Cell Distribution Width 20.5 % (9.3-17.3); White Blood Count 8.8 T/CUMM (4-12)
[2020-07-13 06:19] LABS: Calcium 8.1 MG/DL (8.5-10.1); Osmolality,Calculated 292.7 MOS/KG (273-304); Potassium 3.9 MMOL/L (3.5-5.1)
[2020-07-13] MEDS: INSULIN LISPRO 100 UNIT/ML SUBCUT SCH ×2 (06:22→12:12)
[2020-07-13 07:09] LABS: Band Neutrophils 1 % (0-10); Eosinophils 8 % (0-10); Lymphocytes 22 % (20-55); Segmented Neutrophils 50 % (50-85); Total Cells Counted 100
[2020-07-13 07:10] LABS: Platelet Estimate Normal
[2020-07-13] MEDS: FOLIC ACID 1 MG TABLET PO SCH (08:55)
[2020-07-13] MEDS: ASPIRIN CHEW 81 MG TABLET PO SCH (08:55)
[2020-07-13] MEDS: FUROSEMIDE 40 MG TABLET PO SCH (08:55)
[2020-07-13] MEDS: LEVOFLOXACIN 500 MG TABLET PO SCH (08:55)
[2020-07-13] MEDS: amLODIPine 10 MG TABLET PO SCH (08:55)
[2020-07-13] MEDS: cloNIDine 0.1 MG TABLET PO SCH (08:55)
[2020-07-13] MEDS: predniSONE 10 MG TABLET PO SCH (08:56)
[2020-07-13] MEDS: carvediloL 25 MG TABLET PO SCH (08:56)
[2020-07-13] MEDS: ISOSORBIDE MONONITRATE 20 MG TABLET PO SCH (08:56)
[2020-07-13] MEDS: PANTOPRAZOLE 40 MG VIAL IV SCH (10:07)
[2020-07-13 12:13] VITALS: BP 114/64
[2020-07-15 12:20] LABS: Double Stranded DNA Antibodies < 25.0 IU/ML
== END 2020-07-13 12:02 | disposition home or self-care (01) | DRG 291 ==
LOC: SUPCPDRO → N.ED 00:14 → SUATTDRO 03:15 → N.EDINP 03:15 → N.CC 04:06 → N.TELEN 07-10 14:15
PROVIDERS: ADMIT Internal Medicine; ATTEND Family Medicine

== ENCOUNTER 2020-10-27 16:57 | Inpatient (IN) ==
[2020-10-27] MEDS ORDERED: MORPHINE 4 MG/1 ML VIAL IV ONE (19:36)
[2020-10-27] MEDS ORDERED: ONDANSETRON 4 MG/2 ML VIAL IV ONE (19:36)
[2020-10-27] MEDS ORDERED: cloNIDine 0.1 MG TABLET ONE (19:51)
[2020-10-27] MEDS ORDERED: LABETALOL 20 MG/4 ML SYRINGE IV ONE (19:51)
[2020-10-27 19:52] LABS: Basophils # 0.1 10*3/uL (0.0-0.2); Basophils % 1.1 % (0.0-0.8); Eosinophils # 0.9 10*3/uL (0.0-0.87); Eosinophils % 7.6 % (0.00-10.9); Hematocrit 29.1 VOL% (42.0-52.0); Hemoglobin 8.7 GM/DL (14.0-18.0); Immature Granulocytes % 1.1 %; Immature Granulocytes Absolute 0.13 #; Lymphocytes # 1.8 10*3/uL (1.4-4.0); Lymphocytes % 15.8 % (21.2-54.2); Mean Corpuscular HGB Conc 29.9 GM/DL (32-36); Mean Corpuscular Volume 93.9 FL (87-102); Mean Platelet Volume 10.3 FL (9.6-12.0); Monocytes % 5.4 % (1.7-12.7); NRBC # 0.02 10*3/uL; Platelet Count 363 T/CUMM (130-400); Red Cell Distribution Width 21.4 % (9.3-17.3); White Blood Count 11.4 T/CUMM (4-12)
[2020-10-27] MEDS ORDERED: LABETALOL 20 MG/4 ML SYRINGE IV STA ×2 (19:52→20:30)
[2020-10-27] MEDS ORDERED: cloNIDine 0.1 MG TABLET PO STA (19:52)
[2020-10-27 20:02] LABS: INR 1.1; PT Patient Result 12.1 SECS (10.5-12.0)
[2020-10-27 20:10] LABS: Albumin 3.1 G/DL (3.4-5.0); Bilirubin,Total 0.4 MG/DL (0.2-1.0); Calcium 8.9 MG/DL (8.5-10.1); Osmolality,Calculated 270.1 MOS/KG (273-304); Potassium 3.6 MMOL/L (3.5-5.1); Total Protein 7.5 G/DL (6.4-8.2)
[2020-10-27] MEDS ORDERED: metroNIDAZOLE INJ 500 MG/100 ML PREMIX IV STA (20:30)
[2020-10-27] MEDS ORDERED: CIPROFLOXACIN INJ 400 MG/200 ML PREMIX IV STA (20:30)
[2020-10-27] MEDS ORDERED: MORPHINE 4 MG/1 ML VIAL ONE (21:05)
[2020-10-27] MEDS ORDERED: MORPHINE 4 MG/1 ML VIAL IV STA (21:06)
[2020-10-27] MEDS ORDERED: ONDANSETRON 4 MG/2 ML VIAL IV PRN (21:11)
[2020-10-27] MEDS ORDERED: GLUCAGON 1 MG VIAL IM PRN (21:11)
[2020-10-27] MEDS ORDERED: DEXTROSE 50% 25 GM/50 ML VIAL IV PRN (21:11)
[2020-10-27] MEDS: SODIUM CHLORIDE 0.45% 1,000 ML IV SCH (23:29)
[2020-10-28 06:04] LABS: Basophils # 0.1 10*3/uL (0.0-0.2); Basophils % 0.7 % (0.0-0.8); Eosinophils # 0.9 10*3/uL (0.0-0.87); Eosinophils % 9.1 % (0.00-10.9); Hemoglobin 7.8 GM/DL (14.0-18.0); Immature Granulocytes % 1.3 %; Immature Granulocytes Absolute 0.13 #; Lymphocytes # 1.5 10*3/uL (1.4-4.0); Lymphocytes % 15.7 % (21.2-54.2); Mean Corpuscular HGB Conc 28.9 GM/DL (32-36); Mean Corpuscular Volume 96.4 FL (87-102); Mean Platelet Volume 10.3 FL (9.6-12.0); Monocytes % 7.3 % (1.7-12.7); NRBC # 0.02 10*3/uL; Neutrophils % 65.9 % (38.7-73.9); Platelet Count 254 T/CUMM (130-400); Red Cell Distribution Width 21.1 % (9.3-17.3); White Blood Count 9.8 T/CUMM (4-12)
[2020-10-28 06:18] LABS: Calcium 8.4 MG/DL (8.5-10.1); Potassium 3.4 MMOL/L (3.5-5.1)
[2020-10-28 06:48] LABS: Ovalocytes Few; Polychromasia Slight; Tear Drop Cells Few
[2020-10-28 06:49] LABS: Hypochromasia Slight; Platelet Estimate Normal
[2020-10-28] MEDS: metroNIDAZOLE INJ 500 MG/100 ML PREMIX IV SCH ×2 (08:15→15:45)
[2020-10-28] MEDS ORDERED: CIPROFLOXACIN INJ 400 MG/200 ML PREMIX IV SCH (09:00)
[2020-10-28] MEDS: cloNIDine 0.1 MG TABLET PO SCH ×2 (09:40→20:35)
[2020-10-28] MEDS: predniSONE 5 MG TABLET PO SCH (09:40)
[2020-10-28] MEDS: carvediloL 25 MG TABLET PO SCH ×2 (09:40→20:35)
[2020-10-28] MEDS: ASPIRIN CHEW 81 MG TABLET PO SCH (09:41)
[2020-10-28] MEDS: OMEPRAZOLE ODT 20 MG TABLET PER TUBE SCH (09:41)
[2020-10-28] MEDS: SODIUM CHLORIDE 0.45% 1,000 ML IV SCH ×2 (09:42→18:00)
[2020-10-28] MEDS: POTASSIUM CHLORIDE RIDER 10 MEQ/100 ML PREMIX IV PRN ×3 (11:49→17:17)
[2020-10-28] MEDS ORDERED: AMOXICILLIN/CLAV 500 MG TABLET PO SCH (15:00)
[2020-10-28] MEDS: PIPERACILLIN/TAZOBACTAM 3,375 MG in SODIUM CHLORIDE 0.9% 100 ML IV SCH (20:39)
[2020-10-28 20:49] LABS: Bilirubin,Urine Negative (Negative); Blood, Urine Negative (Negative); Glucose,Urine (UA) Negative (Negative); Ketones,Urine Negative (Negative); Mucus,Urine Occasional /LPF (Occasional); Nitrite,Urine Negative (Negative); Protein,Urine 30 MG/DL; RBC,Urine 5 /HPF (0-4); Urine Appearance CLOUDY (Clear); Urine Color Yellow (Yellow)
[2020-10-29] MEDS: PIPERACILLIN/TAZOBACTAM 3,375 MG in SODIUM CHLORIDE 0.9% 100 ML IV SCH ×3 (04:45→20:22)
[2020-10-29 04:46] LABS: Basophils % 0.4 % (0.0-0.8); Eosinophils # 0.6 10*3/uL (0.0-0.87); Eosinophils % 6.3 % (0.00-10.9); Hematocrit 23.2 VOL% (42.0-52.0); Immature Granulocytes % 1.6 %; Immature Granulocytes Absolute 0.15 #; Lymphocytes # 1.4 10*3/uL (1.4-4.0); Mean Corpuscular HGB Conc 30.2 GM/DL (32-36); Mean Corpuscular Volume 94.3 FL (87-102); Mean Platelet Volume 10.3 FL (9.6-12.0); Monocytes % 10.2 % (1.7-12.7); Neutrophils % 66.5 % (38.7-73.9); Platelet Count 184 T/CUMM (130-400); Red Blood Count 2.46 MC/CUMM (3.8-5.5); Red Cell Distribution Width 21.1 % (9.3-17.3); White Blood Count 9.4 T/CUMM (4-12)
[2020-10-29 05:02] LABS: Calcium 7.9 MG/DL (8.5-10.1); Potassium 3.8 MMOL/L (3.5-5.1)
[2020-10-29 08:08] LABS: % Iron Saturation 15.3 % (18-50); Ferritin 326.8 ng/ml (26-388)
[2020-10-29 08:26] LABS: Folate 2.94 NG/ML (5.38-24.0)
[2020-10-29] MEDS: carvediloL 25 MG TABLET PO SCH ×2 (08:47→20:16)
[2020-10-29] MEDS: FOLIC ACID 1 MG TABLET PO SCH (08:48)
[2020-10-29] MEDS: ASPIRIN CHEW 81 MG TABLET PO SCH (08:48)
[2020-10-29] MEDS: cloNIDine 0.1 MG TABLET PO SCH ×2 (08:48→20:16)
[2020-10-29] MEDS: amLODIPine 10 MG TABLET PO SCH (08:48)
[2020-10-29] MEDS: predniSONE 5 MG TABLET PO SCH (08:48)
[2020-10-29] MEDS: OMEPRAZOLE ODT 20 MG TABLET PER TUBE SCH (08:49)
[2020-10-29] MEDS: FLUCONAZOLE 200 MG TABLET PO SCH (08:49)
[2020-10-29] MEDS: SODIUM CHLORIDE 0.45% 1,000 ML IV SCH ×2 (08:50→20:18)
[2020-10-29] MEDS: KETOCONAZOLE 2% CREAM 30 GM TUBE TOP SCH ×2 (08:52→20:22)
[2020-10-29] MEDS ORDERED: SODIUM CHLORIDE 0.9% 1,000 ML IV PRN (09:55)
[2020-10-29 12:43] LABS: Hematocrit 24.5 VOL% (42.0-52.0); Hemoglobin 7.2 GM/DL (14.0-18.0)
[2020-10-30] MEDS: PIPERACILLIN/TAZOBACTAM 3,375 MG in SODIUM CHLORIDE 0.9% 100 ML IV SCH (04:05)
[2020-10-30 04:50] LABS: Basophils # 0.1 10*3/uL (0.0-0.2); Basophils % 0.6 % (0.0-0.8); Eosinophils # 0.5 10*3/uL (0.0-0.87); Hematocrit 25.4 VOL% (42.0-52.0); Hemoglobin 7.8 GM/DL (14.0-18.0); Immature Granulocytes % 0.8 %; Immature Granulocytes Absolute 0.07 #; Lymphocytes # 1.4 10*3/uL (1.4-4.0); Lymphocytes % 16.2 % (21.2-54.2); Mean Corpuscular HGB Conc 30.7 GM/DL (32-36); Mean Corpuscular Volume 91.4 FL (87-102); Mean Platelet Volume 10.5 FL (9.6-12.0); Monocytes % 11.5 % (1.7-12.7); Neutrophils % 64.9 % (38.7-73.9); Platelet Count 159 T/CUMM (130-400); Red Blood Count 2.78 MC/CUMM (3.8-5.5); Red Cell Distribution Width 20.9 % (9.3-17.3); White Blood Count 8.8 T/CUMM (4-12)
[2020-10-30 05:12] LABS: Calcium 8.1 MG/DL (8.5-10.1); Osmolality,Calculated 274.7 MOS/KG (273-304); Potassium 3.7 MMOL/L (3.5-5.1)
[2020-10-30] MEDS: cloNIDine 0.1 MG TABLET PO SCH (08:32)
[2020-10-30] MEDS: ASPIRIN CHEW 81 MG TABLET PO SCH (08:32)
[2020-10-30] MEDS: FLUCONAZOLE 200 MG TABLET PO SCH (08:33)
[2020-10-30] MEDS: amLODIPine 10 MG TABLET PO SCH (08:33)
[2020-10-30] MEDS: predniSONE 5 MG TABLET PO SCH (08:33)
[2020-10-30] MEDS: FOLIC ACID 1 MG TABLET PO SCH (08:33)
[2020-10-30] MEDS: OMEPRAZOLE ODT 20 MG TABLET PER TUBE SCH (08:33)
[2020-10-30] MEDS: carvediloL 25 MG TABLET PO SCH (08:33)
[2020-10-30] MEDS: KETOCONAZOLE 2% CREAM 30 GM TUBE TOP SCH (08:35)
[2020-10-30 11:39] VITALS: BP 136/73
== END 2020-10-30 13:10 | disposition home or self-care (01) | DRG 378 ==
LOC: N.ED 16:57 → N.EDINP 21:11 → SUATTDRO 21:11 → N.EDINP 23:19 → N.4E 23:26
PROVIDERS: ADMIT Hospitalist; ATTEND Internal Medicine

== ENCOUNTER 2020-12-17 21:15 | Inpatient (IN) ==
[2020-12-18] MEDS ORDERED: SODIUM CHLORIDE 0.9% 500 ML IV STA (04:05)
[2020-12-18] MEDS ORDERED: HYDROmorphone 2 MG/1 ML VIAL IV STA (04:05)
[2020-12-18] MEDS ORDERED: ONDANSETRON 4 MG/2 ML VIAL IV STA (04:05)
[2020-12-18] MEDS ORDERED: PANTOPRAZOLE 40 MG VIAL IV STA (04:05)
[2020-12-18 05:02] LABS: Basophils % 0.1 % (0.0-0.8); Eosinophils % 0.2 % (0.00-10.9); Hematocrit 37.1 VOL% (42.0-52.0); Hemoglobin 11.2 GM/DL (14.0-18.0); Immature Granulocytes % 0.7 %; Immature Granulocytes Absolute 0.14 #; Lymphocytes # 2.3 10*3/uL (1.4-4.0); Lymphocytes % 10.8 % (21.2-54.2); Mean Corpuscular HGB Conc 30.2 GM/DL (32-36); Mean Corpuscular Volume 91.8 FL (87-102); Mean Platelet Volume 11.2 FL (9.6-12.0); Monocytes % 9.1 % (1.7-12.7); Neutrophils % 79.1 % (38.7-73.9); Platelet Count 227 T/CUMM (130-400); Red Blood Count 4.04 MC/CUMM (3.8-5.5); Red Cell Distribution Width 17.6 % (9.3-17.3); White Blood Count 21.1 T/CUMM (4-12)
[2020-12-18 05:20] LABS: Band Neutrophils 1 % (0-10); Hypochromasia 1+; Lymphocytes 11 % (20-55); Microcytosis 1+; Platelet Estimate Adequate; Segmented Neutrophils 80 % (50-85); Total Cells Counted 100
[2020-12-18 05:29] LABS: Alanine Aminotransferase 14 U/L (16-61); Alkaline Phosphatase 92 U/L (45-117); Amylase 29 U/L (25-115); Aspartate Amino Transferase 11 U/L (0-37); Bilirubin,Total < 0.39 MG/DL (0.20-1.00); Blood Urea Nitrogen 21 MG/DL (7-18); Calcium 8.7 MG/DL (8.5-10.1); Carbon Dioxide 25 MMOL/L (21-32); Estimated Glom Filtration Rate 79 ML/MIN; Glucose 124 MG/DL (74-106); Osmolality,Calculated 282.4 MOS/KG (273-304); Sodium 140 MMOL/L (136-145); Total Protein 7.5 G/DL (6.4-8.2)
[2020-12-18] MEDS ORDERED: PIPERACILLIN/TAZOBACTAM 3,375 MG in SODIUM CHLORIDE 0.9% 100 ML IV STA (05:30)
[2020-12-18] MEDS ORDERED: hydrALAZINE 20 MG/1 ML VIAL IV STA (06:11)
[2020-12-18 08:06] LABS: Bacteria,Urine Many /HPF (Few); Bilirubin,Urine Negative (Negative); Blood, Urine Small mg/dL (Negative); Glucose,Urine (UA) Negative (Negative); Ketones,Urine Negative (Negative); Mucus,Urine Occasional /LPF (Occasional); Nitrite,Urine Positive (Negative); Protein,Urine 100 MG/DL; RBC,Urine 21 /HPF (0-4); Squamous Epithelial Cell,Urine Occasional /HPF (0-10); Urine Appearance CLOUDY (Clear); Urine Color Yellow (Yellow); Urine Specific Gravity 1.018 (1.001-1.035); Urine Urobilinogen < 2.0 EU/DL (0.2-1.0)
[2020-12-18] MEDS ORDERED: ONDANSETRON 4 MG/2 ML VIAL IV PRN ×2 (09:20→10:48)
[2020-12-18] MEDS ORDERED: ACETAMINOPHEN 325 MG TABLET PO PRN (09:20)
[2020-12-18] MEDS ORDERED: PANTOPRAZOLE 40 MG VIAL IV SCH (09:20)
[2020-12-18] MEDS ORDERED: HYDROmorphone 2 MG/1 ML VIAL IV PRN (09:20)
[2020-12-18] MEDS: SODIUM CHLORIDE 0.9% 1,000 ML IV SCH ×2 (09:45→22:02)
[2020-12-18] MEDS: PIPERACILLIN/TAZOBACTAM 3,375 MG in SODIUM CHLORIDE 0.9% 100 ML IV SCH ×2 (14:56→22:02)
[2020-12-19] MEDS: ENOXAPARIN 40 MG/0.4 ML SYRINGE SUBCUT SCH (00:26)
[2020-12-19] MEDS: PIPERACILLIN/TAZOBACTAM 3,375 MG in SODIUM CHLORIDE 0.9% 100 ML IV SCH ×2 (05:31→14:49)
[2020-12-19 05:59] LABS: Basophils % 0.1 % (0.0-0.8); Eosinophils # 0.4 10*3/uL (0.0-0.87); Eosinophils % 2.6 % (0.00-10.9); Hematocrit 37.7 VOL% (42.0-52.0); Hemoglobin 11.3 GM/DL (14.0-18.0); Immature Granulocytes % 0.6 %; Immature Granulocytes Absolute 0.08 #; Lymphocytes # 1.6 10*3/uL (1.4-4.0); Lymphocytes % 11.6 % (21.2-54.2); Mean Corpuscular Volume 92.2 FL (87-102); Mean Platelet Volume 10.8 FL (9.6-12.0); Monocytes % 8.5 % (1.7-12.7); Neutrophils % 76.6 % (38.7-73.9); Platelet Count 224 T/CUMM (130-400); Red Blood Count 4.09 MC/CUMM (3.8-5.5); Red Cell Distribution Width 17.5 % (9.3-17.3); White Blood Count 13.5 T/CUMM (4-12)
[2020-12-19 06:24] LABS: Alanine Aminotransferase < 9 U/L (16-61); Albumin 2.5 G/DL (3.4-5.0); Alkaline Phosphatase 71 U/L (45-117); Aspartate Amino Transferase 8 U/L (0-37); Bilirubin,Total < 0.39 MG/DL (0.20-1.00); Blood Urea Nitrogen 17 MG/DL (7-18); Calcium 8.8 MG/DL (8.5-10.1); Carbon Dioxide 24 MMOL/L (21-32); Estimated Glom Filtration Rate 93 ML/MIN; Glucose 84 MG/DL (74-106); Osmolality,Calculated 277.5 MOS/KG (273-304); Potassium 3.8 MMOL/L (3.5-5.1); Sodium 139 MMOL/L (136-145); Total Protein 6.9 G/DL (6.4-8.2)
[2020-12-19] MEDS: amLODIPine 5 MG TABLET PO SCH (08:25)
[2020-12-19] MEDS: FOLIC ACID 1 MG TABLET PO SCH (08:25)
[2020-12-19] MEDS: carvediloL 25 MG TABLET PO SCH (08:25)
[2020-12-19] MEDS: METOPROLOL SUCCINATE XL 100 MG TABLET PO SCH (08:25)
[2020-12-19] MEDS: PANTOPRAZOLE 40 MG VIAL IV SCH (08:26)
[2020-12-19] MEDS: VANCOMYCIN INJ 1,500 MG in SODIUM CHLORIDE 0.9% 500 ML IV SCH ×2 (10:34→21:56)
[2020-12-19] MEDS: SODIUM CHLORIDE 0.9% 1,000 ML IV SCH ×2 (19:12→22:02)
[2020-12-20] MEDS: HYDROmorphone 2 MG/1 ML VIAL IV PRN ×2 (01:10→09:43)
[2020-12-20] MEDS: PIPERACILLIN/TAZOBACTAM 3,375 MG in SODIUM CHLORIDE 0.9% 100 ML IV SCH ×3 (01:14→19:49)
[2020-12-20] MEDS: ENOXAPARIN 40 MG/0.4 ML SYRINGE SUBCUT SCH (01:19)
[2020-12-20] MEDS: SODIUM CHLORIDE 0.9% 1,000 ML IV SCH (08:20)
[2020-12-20] MEDS: FOLIC ACID 1 MG TABLET PO SCH (09:46)
[2020-12-20] MEDS: amLODIPine 5 MG TABLET PO SCH (09:46)
[2020-12-20] MEDS: carvediloL 25 MG TABLET PO SCH (09:46)
[2020-12-20] MEDS: METOPROLOL SUCCINATE XL 100 MG TABLET PO SCH (09:46)
[2020-12-20] MEDS: PANTOPRAZOLE 40 MG VIAL IV SCH (09:47)
[2020-12-20] MEDS: VANCOMYCIN INJ 1,500 MG in SODIUM CHLORIDE 0.9% 500 ML IV SCH (15:02)
[2020-12-21] MEDS: VANCOMYCIN INJ 1,500 MG in SODIUM CHLORIDE 0.9% 500 ML IV SCH ×2 (01:17→14:00)
[2020-12-21] MEDS: ENOXAPARIN 40 MG/0.4 ML SYRINGE SUBCUT SCH (01:18)
[2020-12-21] MEDS: PIPERACILLIN/TAZOBACTAM 3,375 MG in SODIUM CHLORIDE 0.9% 100 ML IV SCH ×3 (02:59→17:41)
[2020-12-21] MEDS: HYDROmorphone 2 MG/1 ML VIAL IV PRN ×3 (03:04→20:57)
[2020-12-21 06:48] LABS: Basophils % 0.3 % (0.0-0.8); Eosinophils # 0.2 10*3/uL (0.0-0.87); Eosinophils % 2.2 % (0.00-10.9); Hematocrit 36.1 VOL% (42.0-52.0); Immature Granulocytes % 1.3 %; Immature Granulocytes Absolute 0.11 #; Lymphocytes # 1.6 10*3/uL (1.4-4.0); Lymphocytes % 17.9 % (21.2-54.2); Mean Corpuscular HGB Conc 30.5 GM/DL (32-36); Mean Corpuscular Volume 90.3 FL (87-102); Monocytes % 7.5 % (1.7-12.7); Neutrophils % 70.8 % (38.7-73.9); Platelet Count 213 T/CUMM (130-400); Red Cell Distribution Width 17.2 % (9.3-17.3); White Blood Count 8.8 T/CUMM (4-12)
[2020-12-21 07:16] LABS: Calcium 8.8 MG/DL (8.5-10.1); Osmolality,Calculated 273.5 MOS/KG (273-304); Potassium 3.5 MMOL/L (3.5-5.1)
[2020-12-21] MEDS: amLODIPine 5 MG TABLET PO SCH (08:56)
[2020-12-21] MEDS: FOLIC ACID 1 MG TABLET PO SCH (08:56)
[2020-12-21] MEDS: carvediloL 25 MG TABLET PO SCH (08:56)
[2020-12-21] MEDS: METOPROLOL SUCCINATE XL 100 MG TABLET PO SCH (08:56)
[2020-12-21] MEDS: PANTOPRAZOLE 40 MG VIAL IV SCH (08:58)
[2020-12-22] MEDS: PIPERACILLIN/TAZOBACTAM 3,375 MG in SODIUM CHLORIDE 0.9% 100 ML IV SCH ×3 (01:04→18:28)
[2020-12-22] MEDS: ENOXAPARIN 40 MG/0.4 ML SYRINGE SUBCUT SCH ×2 (01:07→23:59)
[2020-12-22] MEDS: FOLIC ACID 1 MG TABLET PO SCH (08:44)
[2020-12-22] MEDS: carvediloL 25 MG TABLET PO SCH (08:44)
[2020-12-22] MEDS: METOPROLOL SUCCINATE XL 100 MG TABLET PO SCH (08:45)
[2020-12-22] MEDS: amLODIPine 5 MG TABLET PO SCH (08:45)
[2020-12-22] MEDS: PANTOPRAZOLE 40 MG VIAL IV SCH (08:46)
[2020-12-22] MEDS ORDERED: VANCOMYCIN INJ 1,500 MG in SODIUM CHLORIDE 0.9% 500 ML IV SCH (09:00)
[2020-12-23] MEDS: PIPERACILLIN/TAZOBACTAM 3,375 MG in SODIUM CHLORIDE 0.9% 100 ML IV SCH ×2 (00:56→08:50)
[2020-12-23] MEDS: METOPROLOL SUCCINATE XL 100 MG TABLET PO SCH (08:49)
[2020-12-23] MEDS: FOLIC ACID 1 MG TABLET PO SCH (08:49)
[2020-12-23] MEDS: amLODIPine 5 MG TABLET PO SCH (08:50)
[2020-12-23] MEDS: carvediloL 25 MG TABLET PO SCH (08:50)
[2020-12-23] MEDS: PANTOPRAZOLE 40 MG VIAL IV SCH (08:50)
[2020-12-23 12:01] VITALS: BP 139/61
== END 2020-12-23 13:56 | disposition home or self-care (01) | DRG 392 ==
LOC: N.ED 21:15 → N.EDINP 12-18 06:06 → N.3E 12-18 10:20
PROVIDERS: ADMIT Surgery; ATTEND Student in an Organized Health Care Education/Training Program

== ENCOUNTER 2021-03-23 10:53 | Inpatient (IN) ==
[2021-03-23 12:24] LABS: Basophils % 0.2 % (0.0-0.8); Eosinophils # 0.1 10*3/uL (0.0-0.87); Eosinophils % 1.4 % (0.00-10.9); Hematocrit 42.6 VOL% (42.0-52.0); Hemoglobin 13.2 GM/DL (14.0-18.0); Immature Granulocytes % 0.5 %; Immature Granulocytes Absolute 0.04 #; Lymphocytes # 1.3 10*3/uL (1.4-4.0); Lymphocytes % 16.1 % (21.2-54.2); Mean Corpuscular Volume 83.2 FL (87-102); Mean Platelet Volume 9.8 FL (9.6-12.0); Monocytes % 11.7 % (1.7-12.7); Neutrophils % 70.1 % (38.7-73.9); Platelet Count 312 T/CUMM (130-400); Red Blood Count 5.12 MC/CUMM (3.8-5.5); White Blood Count 8.1 T/CUMM (4-12)
[2021-03-23 12:36] LABS: Bacteria,Urine Many /HPF (Few); Bilirubin,Urine Negative (Negative); Blood, Urine Moderate mg/dL (Negative); Glucose,Urine (UA) Negative (Negative); Ketones,Urine 20 mg/dL (Negative); Mucus,Urine Occasional /LPF (Occasional); Nitrite,Urine Negative (Negative); Protein,Urine >=500 MG/DL; RBC,Urine 19 /HPF (0-4); Squamous Epithelial Cell,Urine Occasional /HPF (0-10); Urine Appearance CLOUDY (Clear); Urine Color Amber (Yellow); Urine Specific Gravity 1.024 (1.001-1.035)
[2021-03-23] MEDS ORDERED: cefTRIAXone 1,000 MG in SODIUM CHLORIDE 0.9% 100 ML IV STA (12:46)
[2021-03-23 12:48] LABS: Albumin 3.6 G/DL (3.4-5.0); Bilirubin,Total 0.5 MG/DL (0.20-1.00); Calcium 8.9 MG/DL (8.5-10.1); Osmolality,Calculated 277.8 MOS/KG (273-304); Potassium 3.4 MMOL/L (3.5-5.1); Total Protein 8.1 G/DL (6.4-8.2)
[2021-03-23] MEDS ORDERED: ONDANSETRON 4 MG/2 ML VIAL IV PRN (14:29)
[2021-03-23] MEDS ORDERED: ACETAMINOPHEN 325 MG TABLET PO PRN (14:29)
[2021-03-23] MEDS ORDERED: DEXTROSE 50% 25 GM/50 ML VIAL IV PRN (14:29)
[2021-03-23] MEDS ORDERED: GLUCAGON 1 MG VIAL IM PRN (14:29)
[2021-03-23] MEDS ORDERED: MORPHINE 2 MG/1 ML SYRINGE IV PRN (14:29)
[2021-03-23] MEDS ORDERED: LACTATED RINGERS 1,000 ML IV ONE (14:33)
[2021-03-23] MEDS ORDERED: hydrALAZINE 20 MG/1 ML VIAL IV PRN (14:38)
[2021-03-23] MEDS ORDERED: MORPHINE 2 MG/1 ML SYRINGE IV STA (14:38)
[2021-03-23] MEDS ORDERED: NICOTINE 14 MG/24 HR PATCH TRANSDERM PRN (14:47)
[2021-03-23] MEDS: LEVOFLOXACIN INJ 750 MG/150 ML PREMIX IV SCH (15:06)
[2021-03-23] MEDS: amLODIPine 5 MG TABLET PO SCH (15:19)
[2021-03-23] MEDS ORDERED: INFLUENZA VIRUS VACCINE 0.5 ML SYRINGE IM ONE (17:11)
[2021-03-23] MEDS: ENOXAPARIN 40 MG/0.4 ML SYRINGE SUBCUT SCH (17:18)
[2021-03-23] MEDS: LACTATED RINGERS 1,000 ML IV SCH (17:19)
[2021-03-23] MEDS: metroNIDAZOLE INJ 500 MG/100 ML PREMIX IV SCH ×2 (17:43→23:28)
[2021-03-23] MEDS: METOPROLOL TARTRATE 25 MG TABLET PO SCH (21:12)
[2021-03-24] MEDS: LACTATED RINGERS 1,000 ML IV SCH (04:41)
[2021-03-24 05:57] LABS: Basophils % 0.7 % (0.0-0.8); Eosinophils # 0.2 10*3/uL (0.0-0.87); Eosinophils % 2.7 % (0.00-10.9); Hematocrit 36.9 VOL% (42.0-52.0); Hemoglobin 11.7 GM/DL (14.0-18.0); Immature Granulocytes % 0.5 %; Immature Granulocytes Absolute 0.03 #; Lymphocytes % 18.7 % (21.2-54.2); Mean Corpuscular HGB Conc 31.7 GM/DL (32-36); Mean Corpuscular Volume 84.1 FL (87-102); Mean Platelet Volume 10.1 FL (9.6-12.0); Monocytes % 12.8 % (1.7-12.7); Neutrophils % 64.6 % (38.7-73.9); Platelet Count 243 T/CUMM (130-400); Red Blood Count 4.39 MC/CUMM (3.8-5.5); Red Cell Distribution Width 18.3 % (9.3-17.3); White Blood Count 5.6 T/CUMM (4-12)
[2021-03-24 06:29] LABS: Albumin 2.9 G/DL (3.4-5.0); Bilirubin,Total 0.8 MG/DL (0.20-1.00); Calcium 8.6 MG/DL (8.5-10.1); Osmolality,Calculated 277.5 MOS/KG (273-304); Potassium 2.8 MMOL/L (3.5-5.1)
[2021-03-24] MEDS: metroNIDAZOLE INJ 500 MG/100 ML PREMIX IV SCH ×3 (08:07→23:48)
[2021-03-24] MEDS: amLODIPine 5 MG TABLET PO SCH (09:03)
[2021-03-24] MEDS: PANTOPRAZOLE 40 MG TABLET PO SCH (09:03)
[2021-03-24] MEDS: POTASSIUM CHLORIDE RIDER 10 MEQ/100 ML PREMIX IV PRN ×5 (09:03→14:25)
[2021-03-24] MEDS: METOPROLOL TARTRATE 25 MG TABLET PO SCH ×2 (09:03→21:18)
[2021-03-24] MEDS: FOLIC ACID 1 MG TABLET PO SCH (09:03)
[2021-03-24] MEDS: predniSONE 5 MG TABLET PO SCH (09:03)
[2021-03-24] MEDS: ENOXAPARIN 40 MG/0.4 ML SYRINGE SUBCUT SCH (15:53)
[2021-03-24] MEDS: LEVOFLOXACIN INJ 750 MG/150 ML PREMIX IV SCH (17:04)
[2021-03-25] MEDS: LACTATED RINGERS 1,000 ML IV SCH ×2 (01:07→01:10)
[2021-03-25] MEDS: metroNIDAZOLE INJ 500 MG/100 ML PREMIX IV SCH ×3 (06:03→22:51)
[2021-03-25 06:43] LABS: Basophils % 0.4 % (0.0-0.8); Eosinophils # 0.2 10*3/uL (0.0-0.87); Hematocrit 38.6 VOL% (42.0-52.0); Hemoglobin 12.1 GM/DL (14.0-18.0); Immature Granulocytes % 0.7 %; Immature Granulocytes Absolute 0.04 #; Lymphocytes # 1.2 10*3/uL (1.4-4.0); Lymphocytes % 21.7 % (21.2-54.2); Mean Corpuscular HGB Conc 31.3 GM/DL (32-36); Mean Corpuscular Volume 84.6 FL (87-102); Mean Platelet Volume 9.9 FL (9.6-12.0); Monocytes % 13.3 % (1.7-12.7); Neutrophils % 60.9 % (38.7-73.9); Platelet Count 211 T/CUMM (130-400); Red Blood Count 4.56 MC/CUMM (3.8-5.5); Red Cell Distribution Width 18.3 % (9.3-17.3); White Blood Count 5.3 T/CUMM (4-12)
[2021-03-25 07:11] LABS: Calcium 8.6 MG/DL (8.5-10.1); Osmolality,Calculated 275.5 MOS/KG (273-304)
[2021-03-25 07:15] LABS: Potassium 2.5 MMOL/L (3.5-5.1)
[2021-03-25] MEDS ORDERED: MAGNESIUM SULF RIDER 2 GM/50 ML PREMIX IV ONE (08:45)
[2021-03-25] MEDS ORDERED: MAGNESIUM SULF RIDER 4 GM/100 ML PREMIX IV ONE (08:49)
[2021-03-25] MEDS: POTASSIUM CHLORIDE 20 MEQ TABLET PO SCH ×2 (08:54→20:29)
[2021-03-25] MEDS: FOLIC ACID 1 MG TABLET PO SCH (08:54)
[2021-03-25] MEDS: predniSONE 5 MG TABLET PO SCH (08:54)
[2021-03-25] MEDS: METOPROLOL TARTRATE 25 MG TABLET PO SCH ×2 (08:54→20:29)
[2021-03-25] MEDS: SODIUM CHLOR 0.9% KCL 40 MEQ 40 MEQ/1,000 ML BAG IV SCH (08:54)
[2021-03-25] MEDS: PANTOPRAZOLE 40 MG TABLET PO SCH (08:54)
[2021-03-25] MEDS ORDERED: POTASSIUM CHLORIDE RIDER 10 MEQ/100 ML PREMIX IV SCH (09:00)
[2021-03-25] MEDS: amLODIPine 5 MG TABLET PO SCH (09:04)
[2021-03-25] MEDS: ENOXAPARIN 40 MG/0.4 ML SYRINGE SUBCUT SCH (16:17)
[2021-03-25] MEDS: LEVOFLOXACIN INJ 750 MG/150 ML PREMIX IV SCH (16:18)
[2021-03-26] MEDS: SODIUM CHLOR 0.9% KCL 40 MEQ 40 MEQ/1,000 ML BAG IV SCH ×2 (04:06→13:37)
[2021-03-26 05:47] LABS: Basophils % 0.4 % (0.0-0.8); Eosinophils # 0.2 10*3/uL (0.0-0.87); Eosinophils % 3.3 % (0.00-10.9); Hematocrit 38.2 VOL% (42.0-52.0); Hemoglobin 11.7 GM/DL (14.0-18.0); Immature Granulocytes % 0.9 %; Immature Granulocytes Absolute 0.05 #; Lymphocytes # 1.1 10*3/uL (1.4-4.0); Lymphocytes % 19.3 % (21.2-54.2); Mean Corpuscular HGB Conc 30.6 GM/DL (32-36); Mean Corpuscular Volume 84.3 FL (87-102); Mean Platelet Volume 10.2 FL (9.6-12.0); Monocytes % 14.6 % (1.7-12.7); Neutrophils % 61.5 % (38.7-73.9); Platelet Count 220 T/CUMM (130-400); Red Blood Count 4.53 MC/CUMM (3.8-5.5); Red Cell Distribution Width 18.5 % (9.3-17.3); White Blood Count 5.5 T/CUMM (4-12)
[2021-03-26] MEDS: metroNIDAZOLE INJ 500 MG/100 ML PREMIX IV SCH (06:04)
[2021-03-26 06:10] LABS: Calcium 8.3 MG/DL (8.5-10.1); Osmolality,Calculated 276.4 MOS/KG (273-304)
[2021-03-26] MEDS ORDERED: MAGNESIUM SULF RIDER 2 GM/50 ML PREMIX IV ONE (07:15)
[2021-03-26] MEDS: POTASSIUM CHLORIDE RIDER 10 MEQ/100 ML PREMIX IV SCH ×4 (09:52→13:37)
[2021-03-26] MEDS: POTASSIUM CHLORIDE 20 MEQ TABLET PO SCH (09:54)
[2021-03-26] MEDS: amLODIPine 5 MG TABLET PO SCH (09:54)
[2021-03-26] MEDS: PANTOPRAZOLE 40 MG TABLET PO SCH (09:54)
[2021-03-26] MEDS: FOLIC ACID 1 MG TABLET PO SCH (09:54)
[2021-03-26] MEDS: METOPROLOL TARTRATE 25 MG TABLET PO SCH (09:54)
[2021-03-26] MEDS: predniSONE 5 MG TABLET PO SCH (09:54)
[2021-03-26 11:20] VITALS: BP 174/91
== END 2021-03-26 13:50 | disposition home or self-care (01) | DRG 699 ==
LOC: N.ED 10:53 → SUATTDRO 14:29 → N.EDINP 14:29 → N.3E 17:06
PROVIDERS: ADMIT Internal Medicine; ATTEND Internal Medicine

== ENCOUNTER 2021-12-13 06:07 | Inpatient (IN) ==
[2021-12-13 06:24] LABS: Basophils % 0.6 % (0.0-0.8); Eosinophils # 0.4 10*3/uL (0.0-0.87); Eosinophils % 5.5 % (0.00-10.9); Hematocrit 49.7 VOL% (42.0-52.0); Hemoglobin 15.5 GM/DL (14.0-18.0); Immature Granulocytes % 0.3 %; Immature Granulocytes Absolute 0.02 #; Mean Corpuscular HGB Conc 31.2 GM/DL (32-36); Mean Corpuscular Volume 87.7 FL (87-102); Mean Platelet Volume 11.1 FL (9.6-12.0); Monocytes # 0.5 10*3/uL (0.11-0.8); Monocytes % 6.3 % (1.7-12.7); Neutrophils % 32.3 % (38.7-73.9); Platelet Count 277 T/CUMM (130-400); Red Blood Count 5.67 MC/CUMM (3.8-5.5); Red Cell Distribution Width 16.2 % (9.3-17.3); White Blood Count 7.3 T/CUMM (4-12)
[2021-12-13 06:35] LABS: PT Patient Result 10.9 SECS (10.5-12.0); Partial Thromboplastin Time 30.1 SECS (23.7-32.9)
[2021-12-13] MEDS ORDERED: SODIUM CHLORIDE 0.9% 1,000 ML IV STA (06:40)
[2021-12-13] MEDS ORDERED: ONDANSETRON 4 MG/2 ML VIAL ONE (06:51)
[2021-12-13 06:53] LABS: Alanine Aminotransferase 76 U/L (16-61); Albumin 3.7 G/DL (3.4-5.0); Alkaline Phosphatase 112 U/L (45-117); Aspartate Amino Transferase 39 U/L (0-37); Bilirubin,Total < 0.39 MG/DL (0.20-1.00); Blood Urea Nitrogen 40 MG/DL (7-18); Calcium 9.1 MG/DL (8.5-10.1); Carbon Dioxide 23 MMOL/L (21-32); Chloride 105 MMOL/L (98-107); Glucose 111 MG/DL (74-106); Osmolality,Calculated 283.8 MOS/KG (273-304); Potassium 3.9 MMOL/L (3.5-5.1); Sodium 137 MMOL/L (136-145); Total Protein 8.1 G/DL (6.4-8.2)
[2021-12-13] MEDS ORDERED: ONDANSETRON 4 MG/2 ML VIAL IV STA (06:53)
[2021-12-13 06:58] LABS: Eosinophils 8 % (0-10); Lymphocytes 62 % (20-55); Total Cells Counted 100
[2021-12-13 07:00] LABS: Hypochromia Slight; Microcytosis Slight; Platelet Estimate Normal
[2021-12-13 07:02] LABS: Polychromasia Slight
[2021-12-13] MEDS ORDERED: cefTRIAXone 1,000 MG in SODIUM CHLORIDE 0.9% 100 ML IV STA (09:14)
[2021-12-13] MEDS ORDERED: metroNIDAZOLE INJ 500 MG/100 ML PREMIX IV STA (09:14)
[2021-12-13] MEDS ORDERED: hydrALAZINE 20 MG/1 ML VIAL IV STA (09:30)
[2021-12-13] MEDS ORDERED: ONDANSETRON 4 MG/2 ML VIAL IV PRN (09:42)
[2021-12-13] MEDS ORDERED: hydrALAZINE 20 MG/1 ML VIAL IV PRN (09:42)
[2021-12-13] MEDS ORDERED: ACETAMINOPHEN 325 MG TABLET PO PRN (09:42)
[2021-12-13] MEDS ORDERED: GLUCAGON 1 MG VIAL IM PRN (09:42)
[2021-12-13] MEDS ORDERED: DEXTROSE 10% 250 ML BAG IV PRN (09:48)
[2021-12-13] MEDS: LACTULOSE 20 GM/30 ML UDCUP PO SCH ×2 (10:25→21:29)
[2021-12-13] MEDS: SODIUM CHLORIDE 0.9% 1,000 ML IV SCH (10:27)
[2021-12-13] MEDS ORDERED: LABETALOL 20 MG/4 ML SYRINGE IV ONE (11:12)
[2021-12-13] MEDS: CIPROFLOXACIN INJ 400 MG/200 ML PREMIX IV SCH (11:28)
[2021-12-13] MEDS: METHYLNALTREXONE 12 MG/0.6 ML VIAL SUBCUT SCH (12:56)
[2021-12-13] MEDS: METOPROLOL SUCCINATE XL 100 MG TABLET PO SCH (18:01)
[2021-12-13] MEDS: amLODIPine 10 MG TABLET PO SCH (18:01)
[2021-12-13] MEDS: metroNIDAZOLE INJ 500 MG/100 ML PREMIX IV SCH (18:01)
[2021-12-13] MEDS: MORPHINE ER 30 MG TABLET PO SCH (18:01)
[2021-12-13] MEDS: DOCUSATE SODIUM 100 MG CAPSULE PO SCH (21:29)
[2021-12-14] MEDS: oxyCODONE/ACETAMINOPHEN 5-325 MG TABLET PO PRN ×2 (02:58→08:23)
[2021-12-14] MEDS: metroNIDAZOLE INJ 500 MG/100 ML PREMIX IV SCH ×3 (02:58→17:31)
[2021-12-14] MEDS: SODIUM CHLORIDE 0.9% 1,000 ML IV SCH ×3 (02:58→17:19)
[2021-12-14] MEDS: CIPROFLOXACIN INJ 400 MG/200 ML PREMIX IV SCH ×2 (05:42→17:31)
[2021-12-14 05:44] LABS: Basophils % 0.1 % (0.0-0.8); Hematocrit 41.6 VOL% (42.0-52.0); Hemoglobin 12.8 GM/DL (14.0-18.0); Immature Granulocytes % 1.3 %; Immature Granulocytes Absolute 0.28 #; Lymphocytes % 4.8 % (21.2-54.2); Mean Corpuscular HGB Conc 30.8 GM/DL (32-36); Mean Corpuscular Volume 87.4 FL (87-102); Mean Platelet Volume 11.9 FL (9.6-12.0); Monocytes # 1.5 10*3/uL (0.11-0.8); Monocytes % 6.9 % (1.7-12.7); Neutrophils % 86.9 % (38.7-73.9); Platelet Count 170 T/CUMM (130-400); Red Blood Count 4.76 MC/CUMM (3.8-5.5); Red Cell Distribution Width 16.2 % (9.3-17.3); White Blood Count 21.6 T/CUMM (4-12)
[2021-12-14 06:00] LABS: Albumin 2.8 G/DL (3.4-5.0); Bilirubin,Total 0.4 MG/DL (0.20-1.00); Calcium 8.6 MG/DL (8.5-10.1); Osmolality,Calculated 282.8 MOS/KG (273-304); Potassium 3.8 MMOL/L (3.5-5.1); Risk Ratio 3.95; Total Protein 6.9 G/DL (6.4-8.2); VLDL Cholesterol 29.2 MG/DL
[2021-12-14 07:07] LABS: Band Neutrophils 2 % (0-10); Lymphocytes 8 % (20-55); Total Cells Counted 100
[2021-12-14 07:08] LABS: Platelet Estimate Normal
[2021-12-14] MEDS: amLODIPine 10 MG TABLET PO SCH (08:22)
[2021-12-14] MEDS: METOPROLOL SUCCINATE XL 100 MG TABLET PO SCH (08:22)
[2021-12-14] MEDS: DOCUSATE SODIUM 100 MG CAPSULE PO SCH ×2 (08:22→20:52)
[2021-12-14] MEDS: PANTOPRAZOLE 40 MG TABLET PO SCH (08:22)
[2021-12-14] MEDS: LACTULOSE 20 GM/30 ML UDCUP PO SCH ×2 (08:22→20:52)
[2021-12-14] MEDS: MORPHINE ER 30 MG TABLET PO SCH ×2 (08:23→20:52)
[2021-12-14] MEDS: predniSONE 5 MG TABLET PO SCH (08:24)
[2021-12-14] MEDS ORDERED: NON-FORMULARY MEDICATION (Omeprazole 20 mg capsule,delayed release(DR/EC)) PO SCH (09:00)
[2021-12-14] MEDS: METHYLNALTREXONE 12 MG/0.6 ML VIAL SUBCUT SCH (09:28)
[2021-12-15] MEDS: metroNIDAZOLE INJ 500 MG/100 ML PREMIX IV SCH ×2 (01:23→10:14)
[2021-12-15] MEDS: SODIUM CHLORIDE 0.9% 1,000 ML IV SCH ×2 (02:23→05:28)
[2021-12-15] MEDS: CIPROFLOXACIN INJ 400 MG/200 ML PREMIX IV SCH (05:28)
[2021-12-15 06:58] LABS: Basophils % 0.2 % (0.0-0.8); Eosinophils # 0.1 10*3/uL (0.0-0.87); Eosinophils % 0.4 % (0.00-10.9); Hematocrit 33.4 VOL% (42.0-52.0); Hemoglobin 10.2 GM/DL (14.0-18.0); Immature Granulocytes % 1.2 %; Lymphocytes # 0.8 10*3/uL (1.4-4.0); Mean Corpuscular HGB Conc 30.5 GM/DL (32-36); Mean Corpuscular Volume 89.1 FL (87-102); Mean Platelet Volume 12.9 FL (9.6-12.0); Monocytes # 1.7 10*3/uL (0.11-0.8); Monocytes % 10.1 % (1.7-12.7); Neutrophils % 83.1 % (38.7-73.9); Platelet Count 138 T/CUMM (130-400); Red Blood Count 3.75 MC/CUMM (3.8-5.5); Red Cell Distribution Width 16.1 % (9.3-17.3); White Blood Count 16.9 T/CUMM (4-12)
[2021-12-15 07:41] LABS: Osmolality,Calculated 280.8 MOS/KG (273-304); Potassium 3.7 MMOL/L (3.5-5.1)
[2021-12-15] MEDS: amLODIPine 10 MG TABLET PO SCH (10:13)
[2021-12-15] MEDS: MORPHINE ER 30 MG TABLET PO SCH (10:14)
[2021-12-15] MEDS: PANTOPRAZOLE 40 MG TABLET PO SCH (10:14)
[2021-12-15] MEDS: METOPROLOL SUCCINATE XL 100 MG TABLET PO SCH (10:14)
[2021-12-15] MEDS: LACTULOSE 20 GM/30 ML UDCUP PO SCH (10:14)
[2021-12-15] MEDS: DOCUSATE SODIUM 100 MG CAPSULE PO SCH (10:14)
[2021-12-15] MEDS: predniSONE 5 MG TABLET PO SCH (11:18)
[2021-12-15 11:50] VITALS: BP 104/69
== END 2021-12-15 14:28 | disposition left against medical advice (07) | DRG 392 ==
LOC: N.ED 06:07 → N.EDINP 09:42 → SUATTDRO 09:42 → N.3E 10:35
PROVIDERS: ADMIT Internal Medicine; ATTEND Emergency Medicine

== ENCOUNTER 2021-12-31 10:01 | Observation (INO) ==
[2021-12-31] MEDS ORDERED: SODIUM CHLORIDE 0.9% 1,000 ML IV STA (10:30)
[2021-12-31] MEDS ORDERED: ONDANSETRON 4 MG/2 ML VIAL IV STA (10:30)
[2021-12-31] MEDS ORDERED: HYDROmorphone 1 MG/1 ML SYRINGE IV STA ×2 (10:34→13:24)
[2021-12-31 10:50] LABS: Basophils % 0.4 % (0.0-0.8); Eosinophils # 0.1 10*3/uL (0.0-0.87); Eosinophils % 0.9 % (0.00-10.9); Hematocrit 41.3 VOL% (42.0-52.0); Hemoglobin 12.9 GM/DL (14.0-18.0); Immature Granulocytes % 2.3 %; Immature Granulocytes Absolute 0.23 #; Lymphocytes # 1.3 10*3/uL (1.4-4.0); Lymphocytes % 13.1 % (21.2-54.2); Mean Corpuscular HGB Conc 31.2 GM/DL (32-36); Mean Platelet Volume 10.4 FL (9.6-12.0); Monocytes % 10.1 % (1.7-12.7); Neutrophils % 73.2 % (38.7-73.9); Platelet Count 448 T/CUMM (130-400); Red Blood Count 4.86 MC/CUMM (3.8-5.5); Red Cell Distribution Width 16.4 % (9.3-17.3)
[2021-12-31 11:06] LABS: Albumin 2.6 G/DL (3.4-5.0); Bilirubin,Total 0.4 MG/DL (0.20-1.00); Calcium 8.8 MG/DL (8.5-10.1); Osmolality,Calculated 281.8 MOS/KG (273-304); Potassium 5.8 MMOL/L (3.5-5.1); Total Protein 7.8 G/DL (6.4-8.2)
[2021-12-31] MEDS: ERTAPENEM 1,000 MG in SODIUM CHLORIDE 0.9% 100 ML IV SCH (11:55)
[2021-12-31 12:02] LABS: Glucose,Urine (UA) Negative (Negative); Ketones,Urine Negative (Negative); Nitrite,Urine Positive (Negative); Protein,Urine >=300 mg/dL (Negative); Urine Appearance Clear (Clear); Urine Color Yellow (Yellow); Urine Specific Gravity 1.025 (1.001-1.035)
[2021-12-31 12:03] LABS: Bilirubin,Urine Small mg/dL (Negative); Blood, Urine Moderate mg/dL (Negative); Urine Urobilinogen 0.2 eU/dL (<2.0)
[2021-12-31 12:12] LABS: Bacteria,Urine Moderate /HPF (Few); Squamous Epithelial Cell,Urine Occasional /HPF (0-10)
[2021-12-31] MEDS ORDERED: hydrALAZINE 20 MG/1 ML VIAL ONE (12:21)
[2021-12-31] MEDS ORDERED: hydrALAZINE 20 MG/1 ML VIAL IV STA (12:33)
[2021-12-31] MEDS ORDERED: ONDANSETRON 4 MG/2 ML VIAL IV PRN (13:19)
[2021-12-31] MEDS ORDERED: ACETAMINOPHEN 325 MG TABLET PO PRN (13:19)
[2021-12-31] MEDS ORDERED: GLUCAGON 1 MG VIAL IM PRN (13:19)
[2021-12-31] MEDS ORDERED: MORPHINE 2 MG/1 ML SYRINGE IV PRN (13:26)
[2021-12-31] MEDS ORDERED: DEXTROSE 10% 250 ML BAG IV PRN (13:29)
[2021-12-31] MEDS ORDERED: LABETALOL 100 MG/20 ML VIAL IV STA (13:47)
[2021-12-31] MEDS ORDERED: amLODIPine 5 MG TABLET PO STA (13:49)
[2021-12-31] MEDS: SODIUM CHLORIDE 0.9% 1,000 ML IV SCH (14:42)
[2021-12-31] MEDS: cloNIDine 0.1 MG TABLET PO SCH ×2 (16:25→20:44)
[2021-12-31] MEDS: METOPROLOL SUCCINATE XL 100 MG TABLET PO SCH (17:46)
[2021-12-31] MEDS: HYDROmorphone 1 MG/1 ML SYRINGE IV PRN (17:48)
[2021-12-31] MEDS: MORPHINE ER 30 MG TABLET PO SCH (20:44)
[2021-12-31] MEDS: ENOXAPARIN 40 MG/0.4 ML SYRINGE SUBCUT SCH (20:44)
[2022-01-01] MEDS: SODIUM CHLORIDE 0.9% 1,000 ML IV SCH ×5 (01:34→21:50)
[2022-01-01 04:56] LABS: Basophils # 0.1 10*3/uL (0.0-0.2); Basophils % 0.5 % (0.0-0.8); Eosinophils # 0.1 10*3/uL (0.0-0.87); Eosinophils % 0.8 % (0.00-10.9); Hematocrit 36.2 VOL% (42.0-52.0); Hemoglobin 11.1 GM/DL (14.0-18.0); Immature Granulocytes % 1.5 %; Immature Granulocytes Absolute 0.14 #; Lymphocytes # 1.5 10*3/uL (1.4-4.0); Lymphocytes % 15.9 % (21.2-54.2); Mean Corpuscular HGB Conc 30.7 GM/DL (32-36); Mean Corpuscular Volume 86.4 FL (87-102); Mean Platelet Volume 10.6 FL (9.6-12.0); Monocytes # 1.3 10*3/uL (0.11-0.8); Monocytes % 13.9 % (1.7-12.7); Neutrophils % 67.4 % (38.7-73.9); Platelet Count 376 T/CUMM (130-400); Red Blood Count 4.19 MC/CUMM (3.8-5.5); Red Cell Distribution Width 16.2 % (9.3-17.3); White Blood Count 9.6 T/CUMM (4-12)
[2022-01-01 05:16] LABS: Alanine Aminotransferase < 9 U/L (16-61); Albumin 2.2 G/DL (3.4-5.0); Alkaline Phosphatase 84 U/L (45-117); Aspartate Amino Transferase 6 U/L (0-37); Bilirubin,Total < 0.39 MG/DL (0.20-1.00); Blood Urea Nitrogen 37 MG/DL (7-18); Calcium 8.3 MG/DL (8.5-10.1); Carbon Dioxide 20 MMOL/L (21-32); Chloride 110 MMOL/L (98-107); Glucose 90 MG/DL (74-106); Osmolality,Calculated 287.4 MOS/KG (273-304); Potassium 3.9 MMOL/L (3.5-5.1); Sodium 140 MMOL/L (136-145); Total Protein 6.2 G/DL (6.4-8.2)
[2022-01-01] MEDS: amLODIPine 10 MG TABLET PO SCH (09:50)
[2022-01-01] MEDS: PANTOPRAZOLE 40 MG TABLET PO SCH (09:50)
[2022-01-01] MEDS: MORPHINE ER 30 MG TABLET PO SCH ×3 (09:51→21:48)
[2022-01-01] MEDS: predniSONE 5 MG TABLET PO SCH (09:51)
[2022-01-01] MEDS: METOPROLOL SUCCINATE XL 100 MG TABLET PO SCH (09:51)
[2022-01-01] MEDS: cloNIDine 0.1 MG TABLET PO SCH ×4 (09:55→21:48)
[2022-01-01] MEDS: ASPIRIN EC 81 MG TABLET PO SCH (09:55)
[2022-01-01] MEDS: ERTAPENEM 1,000 MG in SODIUM CHLORIDE 0.9% 100 ML IV SCH (15:06)
[2022-01-01] MEDS ORDERED: cefTRIAXone 1,000 MG in SODIUM CHLORIDE 0.9% 100 ML IV SCH (16:00)
[2022-01-01] MEDS: metroNIDAZOLE INJ 500 MG/100 ML PREMIX IV SCH ×2 (18:58→23:24)
[2022-01-01] MEDS: ENOXAPARIN 40 MG/0.4 ML SYRINGE SUBCUT SCH (20:00)
[2022-01-02] MEDS: SODIUM CHLORIDE 0.9% 1,000 ML IV SCH (05:51)
[2022-01-02] MEDS: HYDROmorphone 1 MG/1 ML SYRINGE IV PRN (05:54)
[2022-01-02 07:11] LABS: Basophils % 0.6 % (0.0-0.8); Eosinophils # 0.1 10*3/uL (0.0-0.87); Eosinophils % 1.8 % (0.00-10.9); Hematocrit 33.5 VOL% (42.0-52.0); Hemoglobin 10.3 GM/DL (14.0-18.0); Immature Granulocytes % 1.8 %; Immature Granulocytes Absolute 0.13 #; Lymphocytes # 1.2 10*3/uL (1.4-4.0); Mean Corpuscular HGB Conc 30.7 GM/DL (32-36); Mean Corpuscular Volume 86.8 FL (87-102); Monocytes # 1.1 10*3/uL (0.11-0.8); Neutrophils % 63.8 % (38.7-73.9); Platelet Count 309 T/CUMM (130-400); Red Blood Count 3.86 MC/CUMM (3.8-5.5); Red Cell Distribution Width 16.4 % (9.3-17.3); White Blood Count 7.1 T/CUMM (4-12)
[2022-01-02 07:26] LABS: Calcium 7.9 MG/DL (8.5-10.1); Osmolality,Calculated 285.3 MOS/KG (273-304); Potassium 3.8 MMOL/L (3.5-5.1)
[2022-01-02 07:29] LABS: Alanine Aminotransferase < 9 U/L (16-61); Albumin 1.9 G/DL (3.4-5.0); Alkaline Phosphatase 76 U/L (45-117); Aspartate Amino Transferase 5 U/L (0-37); Bilirubin,Total < 0.39 MG/DL (0.20-1.00); Blood Urea Nitrogen 29 MG/DL (7-18); Calcium 7.6 MG/DL (8.5-10.1); Carbon Dioxide 20 MMOL/L (21-32); Chloride 112 MMOL/L (98-107); Glucose 85 MG/DL (74-106); Osmolality,Calculated 283.4 MOS/KG (273-304); Sodium 140 MMOL/L (136-145); Total Protein 5.3 G/DL (6.4-8.2)
[2022-01-02 07:56] VITALS: BP 132/82
[2022-01-02] MEDS: metroNIDAZOLE INJ 500 MG/100 ML PREMIX IV SCH (09:08)
[2022-01-02] MEDS: cloNIDine 0.1 MG TABLET PO SCH (09:08)
[2022-01-02] MEDS: METOPROLOL SUCCINATE XL 100 MG TABLET PO SCH (09:08)
[2022-01-02] MEDS: ASPIRIN EC 81 MG TABLET PO SCH (09:09)
[2022-01-02] MEDS: PANTOPRAZOLE 40 MG TABLET PO SCH (09:09)
[2022-01-02] MEDS: predniSONE 5 MG TABLET PO SCH (09:09)
[2022-01-02] MEDS: amLODIPine 10 MG TABLET PO SCH (09:09)
[2022-01-02] MEDS: MORPHINE ER 30 MG TABLET PO SCH (09:09)
[2022-01-02 12:34] LABS: % Iron Saturation 32.1 % (18-50)
[2022-01-02 12:39] LABS: Folate 4.74 NG/ML (5.38-24.0)
[2022-01-02] MEDS ORDERED: metroNIDAZOLE 500 MG TABLET PO SCH (15:00)
== END 2022-01-02 13:20 | disposition home or self-care (01) ==
LOC: N.ED 10:01 → N.EDINP 10:01 → SUATTDRO 13:19 → N.5E 14:36
PROVIDERS: ADMIT Family Medicine; ATTEND Internal Medicine

== ENCOUNTER 2022-05-11 08:09 | Observation (INO) ==
[2022-05-11] MEDS ORDERED: hydrALAZINE 20 MG/1 ML VIAL IV STA ×3 (08:41→10:44)
[2022-05-11] MEDS ORDERED: FUROSEMIDE 40 MG/4 ML VIAL IV STA (08:41)
[2022-05-11 09:55] LABS: Basophils % 0.4 % (0.0-0.8); Eosinophils # 0.4 10*3/uL (0.0-0.87); Eosinophils % 7.4 % (0.00-10.9); Hematocrit 37.5 VOL% (42.0-52.0); Hemoglobin 11.8 GM/DL (14.0-18.0); Immature Granulocytes % 0.4 %; Immature Granulocytes Absolute 0.02 #; Lymphocytes # 0.8 10*3/uL (1.4-4.0); Lymphocytes % 15.4 % (21.2-54.2); Mean Corpuscular HGB Conc 31.5 GM/DL (32-36); Mean Platelet Volume 10.4 FL (9.6-12.0); Monocytes # 0.6 10*3/uL (0.11-0.8); Monocytes % 11.5 % (1.7-12.7); Neutrophils % 64.9 % (38.7-73.9); Platelet Count 162 T/CUMM (130-400); Red Blood Count 4.31 MC/CUMM (3.8-5.5); Red Cell Distribution Width 17.1 % (9.3-17.3); White Blood Count 5.1 T/CUMM (4-12)
[2022-05-11 10:06] LABS: Mucus,Urine Occasional /LPF (Occasional); RBC,Urine 4 /HPF (0-4); Squamous Epithelial Cell,Urine Occasional /HPF (0-10)
[2022-05-11 10:07] LABS: Bilirubin,Urine Negative (Negative); Blood, Urine Moderate mg/dL (Negative); Glucose,Urine (UA) Negative (Negative); Ketones,Urine Negative (Negative); Nitrite,Urine Negative (Negative); Protein,Urine >=300 mg/dL (Negative); Urine Appearance Clear (Clear); Urine Color Yellow (Yellow); Urine Urobilinogen 0.2 eU/dL (<2.0)
[2022-05-11 10:08] LABS: Albumin 3.4 G/DL (3.4-5.0); Bilirubin,Total 0.4 MG/DL (0.20-1.00); Calcium 8.3 MG/DL (8.5-10.1); Osmolality,Calculated 291.7 MOS/KG (273-304); Potassium 4.2 MMOL/L (3.5-5.1); Total Protein 7.1 G/DL (6.4-8.2)
[2022-05-11 10:28] LABS: Barbiturates Screen,Urine Negative (Negative); Benzodiazepines Screen,Urine Negative (Negative); Cannabinoid Screen,Urine Negative (Negative); Opiate Screen,Urine Positive (Negative); Phencyclidine Screen,Urine Negative (Negative)
[2022-05-11] MEDS ORDERED: amLODIPine 5 MG TABLET PO STA (10:42)
[2022-05-11] MEDS ORDERED: ASPIRIN 325 MG TABLET PO STA (10:44)
[2022-05-11] MEDS ORDERED: ACETAMINOPHEN 325 MG TABLET PO PRN (11:07)
[2022-05-11] MEDS ORDERED: ONDANSETRON 4 MG/2 ML VIAL IV PRN (11:07)
[2022-05-11] MEDS ORDERED: NICOTINE 21 MG/24 HR PATCH TRANSDERM PRN (11:07)
[2022-05-11] MEDS ORDERED: hydrALAZINE 20 MG/1 ML VIAL IV PRN (11:07)
[2022-05-11] MEDS ORDERED: ALBUTEROL 2.5 MG/3 ML NEB RESP TX PRN (11:07)
[2022-05-11] MEDS ORDERED: cloNIDine 0.1 MG TABLET PO STA (11:09)
[2022-05-11] MEDS ORDERED: METOPROLOL TARTRATE 25 MG TABLET PO ONE (11:10)
[2022-05-11] MEDS: HEPARIN 5,000 UNIT/1 ML VIAL SUBCUT SCH ×2 (12:45→23:09)
[2022-05-11] MEDS: METOPROLOL SUCCINATE XL 25 MG TABLET PO SCH (20:42)
[2022-05-12 06:17] LABS: Eosinophils # 0.4 10*3/uL (0.0-0.87); Eosinophils % 9.6 % (0.00-10.9); Hematocrit 38.4 VOL% (42.0-52.0); Hemoglobin 11.9 GM/DL (14.0-18.0); Immature Granulocytes % 0.5 %; Immature Granulocytes Absolute 0.02 #; Lymphocytes % 26.1 % (21.2-54.2); Mean Corpuscular Volume 87.9 FL (87-102); Mean Platelet Volume 11.2 FL (9.6-12.0); Monocytes # 0.6 10*3/uL (0.11-0.8); Monocytes % 14.5 % (1.7-12.7); Neutrophils % 48.3 % (38.7-73.9); Platelet Count 145 T/CUMM (130-400); Red Blood Count 4.37 MC/CUMM (3.8-5.5); Red Cell Distribution Width 17.2 % (9.3-17.3); White Blood Count 3.9 T/CUMM (4-12)
[2022-05-12 06:47] LABS: Alanine Aminotransferase 30 U/L (16-61); Albumin 3.2 G/DL (3.4-5.0); Alkaline Phosphatase 69 U/L (45-117); Aspartate Amino Transferase 38 U/L (0-37); Bilirubin,Total < 0.39 MG/DL (0.20-1.00); Blood Urea Nitrogen 68 MG/DL (7-18); Calcium 8.7 MG/DL (8.5-10.1); Carbon Dioxide 26 MMOL/L (21-32); Chloride 104 MMOL/L (98-107); Cholesterol 222 MG/DL (50-200); Glucose 79 MG/DL (74-106); HDL Cholesterol 46 MG/DL (40-60); Osmolality,Calculated 288.1 MOS/KG (273-304); Potassium 4.1 MMOL/L (3.5-5.1); Risk Ratio 4.83; Sodium 135 MMOL/L (136-145); Triglycerides 192 MG/DL (2-150); VLDL Cholesterol 38.4 MG/DL
[2022-05-12 07:15] VITALS: BP 164/98
[2022-05-12] MEDS ORDERED: amLODIPine 10 MG TABLET PO SCH (09:00)
[2022-05-12] MEDS ORDERED: predniSONE 5 MG TABLET PO SCH (09:00)
[2022-05-12] MEDS ORDERED: ASPIRIN EC 81 MG TABLET PO SCH (09:00)
[2022-05-12] MEDS ORDERED: ISOSORBIDE MONONITRATE 30 MG TABLET PO SCH (09:30)
[2022-05-12] MEDS: METOPROLOL SUCCINATE XL 25 MG TABLET PO SCH (09:40)
[2022-05-12] MEDS ORDERED: ATORVASTATIN 40 MG TABLET PO SCH (21:00)
== END 2022-05-12 11:00 | disposition home or self-care (01) ==
LOC: N.ED 08:09 → N.EDINP 08:09 → N.2W 11:36
PROVIDERS: ADMIT Internal Medicine; ATTEND Internal Medicine